=== PATIENT | female | born 1945 | race Caucasian/White ===

== ENCOUNTER 2022-07-01 15:56 | Inpatient (IN) | payer OTHER ==
[~2022-07-01] VITALS: Ht 152.4 cm; Wt 59.0 kg
[2022-07-01 16:07] VITALS: BP_SYST 134
[2022-07-01] MEDS ORDERED: NACL 0.9% 1,200 ML IV ONE (16:15)
[2022-07-01] MEDS ORDERED: cefTRIAXone 1 GM IVPB PREMIX 50 ML IV ONE (16:15)
[2022-07-01] MEDS ORDERED: methylPREDNISolone SOD SUCC/PF 62.5 MG/ML VIAL IVP ONE (16:15)
[2022-07-01] MEDS ORDERED: MAGNESIUM SULFATE 50 ML IV ONE (16:15)
[2022-07-01] MEDS ORDERED: AZITHROMYCIN 500 MG in NS 250 ML IV ONE (16:15)
[2022-07-01 16:40] LABS: BASOPHILS % (AUTO) 0.2 % (0.0-2.0); HEMATOCRIT 46.4 % (36-48); HEMOGLOBIN 15.5 g/dL (12.0-16.0); LYMPHOCYTES # (AUTO) 0.5 K/uL (1.0-5.5); LYMPHOCYTES % (AUTO) 2.3 % (20.5-51.5); MEAN CORPUSCULAR HEMOGLOBIN 32 pg (27-31); MEAN CORPUSCULAR HGB CONC 33 % (32-36); MEAN CORPUSCULAR VOLUME 95 fL (79.0-98.0); MONOCYTES # (AUTO) 0.4 K/uL (0.0-1.0); NEUTROPHILS # (AUTO) 20.1 K/uL (1.8-7.7); NEUTROPHILS % (AUTO) 95.5 % (40.0-70.0); PLATELET COUNT (AUTO) 230 K/uL (130-430); RED BLOOD CELL COUNT(AUTO) 4.87 MIL/uL (4.2-6.2); RED CELL DISTRIBUTION WIDTH 13.4 % (9.0-15.0)
--- NOTE | 2022-07-01 16:40 | NUR ---
Patient to ER bed 3 for evaluation. Side rails up. Report received from Radha.
--- NOTE | 2022-07-01 16:50 | NUR ---
Assumed care of pt who was brought from home by her daughter in law because her O2 sat was decreased at home from 84% to 88%. Pt became increasingly SOB and experienced air hunger that promted her to come to ED. Pt has a hx of HTN and COPD. She uses O2 at home avg 2 liters. Patient was talkative despite decreased saturation and A&Ox4. Will continue monitor and provide care as ordered.
--- NOTE | 2022-07-01 16:55 | NUR ---
ER Dr. Hart at bedside examining patient.
[2022-07-01 17:26] LABS: ANION GAP 10 (5-15); CALCIUM 9.5 mg/dL (8.4-11.0); CHLORIDE 103 mmol/L (98-107); CREATININE 1.01 mg/dL (0.55-1.30); GLUCOSE 131 mg/dL (70-99); SODIUM SERUM 139 mmol/L (136-145); UREA NITROGEN, BLOOD 23 mg/dL (8-21)
[2022-07-01 17:44] LABS: ALANINE AMINOTRANSFERASE 18 U/L (12-78); ALBUMIN 3.6 g/dL (3.4-4.8); ASPARTATE AMINOTRANSFERASE 18 U/L (10-37); TOTAL BILIRUBIN 0.6 mg/dL (0.0-1.0)
[2022-07-01] MEDS ORDERED: AZITHROMYCIN 500 MG/VIAL (ZITHROMAX) IV ONE (18:11)
--- NOTE | 2022-07-01 19:11 | NUR ---
Jhon Mendieta RN, report for the provision of continuing care.
[2022-07-01] MEDS ORDERED: AUG875 PO ×2 (19:44)
[2022-07-01] MEDS ORDERED: PRED20TA PO ×2 (19:44)
[2022-07-01] MEDS ORDERED: LEVO750T64 PO ×2 (19:44)
[2022-07-01] MEDS ORDERED: ALBMDI INH (19:44)
[2022-07-01] MEDS ORDERED: ALBU2.5V7 INH (19:44)
--- NOTE | 2022-07-01 20:39 | NUR ---
Admit bed requested Patient will be admitted to care of Dr.PALIWAL Dixon Admitted to TELE unit. Diagnosis COPD,PNA Inpatient (Yes or No) YES Observation (Yes or No) NO Orientation concerns or request close to nursing station (Yes or No) NO Covid Status PENDING On vent or bipap NO Isolation requirements NO Needs a sitter NO From Home (Yes or if No enter name of facility) YES Requires Dialysis (Yes or No) NO Med Rec Completed (Yes of No) PENDING
--- NOTE | 2022-07-01 22:30 | NUR ---
Pt transported to tele bed 110A, a/ox4, 84 NSR on solicitor patent, 91% on 4L NC. Bedside report given to No KEENE.
--- NOTE | 2022-07-01 22:45 | NUR ---
Patient received awake and without disress. No sob. O2 inplace, resr is unlabored. O2SAT 89 ON 3L NC. P'S T Significant other is at the bedside. Pt reoriented t he room. Pt wants to watch TV. offered control offered call light and instructed on the use of same.P2SAT 89 ON O2 4L NC.Side rails up times 3. Bed in lowest position.
[2022-07-01 22:58] VITALS: BP_SYST 118
--- NOTE | 2022-07-01 23:26 | NUR ---
RT IS AT RHE BEDSIDE. PT SUCTIONED. O2 AT 1L. O2 SAT 99. Addendum: 07/02/22 at 0037 by Ana Byrd RN RN Electric Installer error. Nursing note entered incorrectly. Please disregard..
[2022-07-02] VITALS (7 sets, daily range): BP systolic 110–130
--- NOTE | 2022-07-02 01:00 | NUR ---
As per DR Niraj Rocha hold mdi qne prednisone and contine all other medication. Pt states that she did not take the Erythromycin yesterday. temp 99.1
--- NOTE | 2022-07-02 01:30 | NUR ---
Xanax administered as ordered. HR 77, [id number]. BP 134/68, rr 24 tachypnic. bed is in lowest position, call light is in reach.
--- NOTE | 2022-07-02 03:21 | NUR ---
No adverse reaction noted from taking Xanax, as ordered. Patient asleep. Patient snoring and O2Sat O2 4L/min NC.
--- NOTE | 2022-07-02 05:37 | NUR ---
CONSULTATION PAGED/CALLED Reason for Consultation: PNA,COPD Person Who was Notified: GONZALO Consulting Physician: TIM Ordnance Equipment Worker Specialty: Ordering Physician: BENJAMÍN
--- NOTE | 2022-07-02 07:00 | NUR ---
Report received from JASSI Sarabia for continuity of care. Patient stable condition. Breathing labored but on O2
[2022-07-02] MEDS ORDERED: ROSU10TA2 PO (07:26)
[2022-07-02] MEDS ORDERED: METO-442 PO (07:26)
[2022-07-02] MEDS ORDERED: HYDR25TA4 PO (07:26)
[2022-07-02] MEDS ORDERED: SERT-436 PO (07:26)
[2022-07-02] MEDS ORDERED: PRED2.5T4 PO (07:26)
[2022-07-02] MEDS ORDERED: AMLO5TAB4 PO (07:26)
[2022-07-02] MEDS ORDERED: MONT-40 PO (07:26)
[2022-07-02] MEDS: ALPRAZolam 0.25 MG TABLET PO PRN (08:34)
[2022-07-02] MEDS ORDERED: BUDESONIDE 0.5 MG/2 ML AMPUL.NEB INH ONE (09:00)
[2022-07-02] MEDS ORDERED: METHYLPREDNISOLONE SOD SUCC 40 MG/ML VIAL IVP ONE (09:00)
[2022-07-02] MEDS: cefTRIAXone 1 GM IVPB PREMIX 50 ML IV SCH (09:49)
[2022-07-02] MEDS: IPRATROPIUM/ALBUTEROL SULFATE 3 ML AMPUL.NEB (DUONEB) INH SCH ×4 (10:25→23:18)
[2022-07-02] MEDS ORDERED: HYDROcodone/ACETAMIN 5-325 MG TAB (NORCO/ VICODIN) PO PRN (10:30)
[2022-07-02] MEDS ORDERED: ONDANSETRON HCL 4 MG/2 ML VIAL IVP PRN (10:30)
[2022-07-02] MEDS ORDERED: NALOXONE HCL 0.4 MG/ML AMP (NARCAN) IVP PRN ×2 (10:30)
[2022-07-02] MEDS ORDERED: HYDROcodone/ACETAMIN 10-325 MG TAB PO PRN (10:30)
[2022-07-02] MEDS ORDERED: ACETAMINOPHEN 325 MG TABLET PO PRN ×2 (10:30→10:45)
[2022-07-02] MEDS ORDERED: METO50TA7 PO (10:45)
[2022-07-02] MEDS ORDERED: HYDROCHLOROTHIAZIDE 25 MG TABLET (HCTZ) PO ONE (10:45)
[2022-07-02] MEDS ORDERED: amLODIPine BESYLATE 5 MG TABLET PO ONE (10:45)
[2022-07-02] MEDS ORDERED: SERTRALINE HCL 50 MG TABLET PO ONE (10:45)
[2022-07-02] MEDS ORDERED: METOPROLOL SUCCINATE 50 MG TAB.SR.24H (TOPROL XL) PO ONE (11:00)
[2022-07-02] MEDS: AZITHROMYCIN 500 MG in NS 250 ML IV SCH (11:13)
[2022-07-02] MEDS: HYDROCHLOROTHIAZIDE 25 MG TABLET (HCTZ) PO SCH (13:51)
[2022-07-02] MEDS ORDERED: NORMAL SALINE 5 ML DISP.SYRIN IVF SCH (14:00)
[2022-07-02] MEDS: NORMAL SALINE 5 ML DISP.SYRIN IVF SCH ×2 (14:00→22:04)
[2022-07-02] MEDS: MONTELUKAST 10 MG TABLET PO SCH (17:56)
--- NOTE | 2022-07-02 19:00 | NUR ---
RECEIVED PT AWAKE .ON OXY 2L/MIN VIA NC AND NOT IN DISTRESS.VITALS DONE ARE WITHIN NORMAL RANGE.IV CANNULA INTACT.PICC RIGHT UPPER ARM PATENT.MEDICATION INFUSING
[2022-07-02] MEDS: BUDESONIDE 0.5 MG/2 ML AMPUL.NEB INH SCH (19:41)
--- NOTE | 2022-07-02 20:02 | NUR ---
Report given to JASSI Alonso for continuity of care. Patient in stable condition. No distress noted.
[2022-07-02] MEDS ORDERED: ROSUVASTATIN CALCIUM 5 MG/TAB (CRESTOR) PO SCH (21:00)
[2022-07-02] MEDS: ATORVASTATIN 20 MG TABLET PO SCH (21:50)
[2022-07-02] MEDS: METHYLPREDNISOLONE SOD SUCC 40 MG/ML VIAL IVP SCH (21:50)
[2022-07-03] VITALS: BP_SYST 125
--- NOTE | 2022-07-03 | NUR ---
COUGHING AND NEEDING NEBULIZER FOR WHEEZING WHICH WAS EFFECTIVE.VITALS UPDATED
[2022-07-03] MEDS: ALPRAZolam 0.25 MG TABLET PO PRN (00:11)
[2022-07-03] MEDS: IPRATROPIUM/ALBUTEROL SULFATE 3 ML AMPUL.NEB (DUONEB) INH SCH ×6 (03:00→23:17)
--- NOTE | 2022-07-03 05:00 | NUR ---
CARES DONE BED BATHED AND LINEN CHANGED.PT ASLEEP
[2022-07-03] MEDS: NORMAL SALINE 5 ML DISP.SYRIN IVF SCH ×3 (05:45→21:21)
[2022-07-03 06:54] LABS: BASOPHILS % (AUTO) 0.2 % (0.0-2.0); HEMATOCRIT 39.6 % (36-48); HEMOGLOBIN 13.3 g/dL (12.0-16.0); LYMPHOCYTES # (AUTO) 0.5 K/uL (1.0-5.5); LYMPHOCYTES % (AUTO) 4.7 % (20.5-51.5); MEAN CORPUSCULAR HEMOGLOBIN 32 pg (27-31); MEAN CORPUSCULAR HGB CONC 34 % (32-36); MEAN CORPUSCULAR VOLUME 95 fL (79.0-98.0); MONOCYTES # (AUTO) 0.4 K/uL (0.0-1.0); MONOCYTES % (AUTO) 3.5 % (1.7-9.3); NEUTROPHILS # (AUTO) 10.3 K/uL (1.8-7.7); NEUTROPHILS % (AUTO) 91.6 % (40.0-70.0); PLATELET COUNT (AUTO) 211 K/uL (130-430); RED BLOOD CELL COUNT(AUTO) 4.17 MIL/uL (4.2-6.2); RED CELL DISTRIBUTION WIDTH 13.4 % (9.0-15.0); WHITE BLOOD COUNT (AUTO) 11.2 K/uL (4.8-10.8)
[2022-07-03] MEDS: BUDESONIDE 0.5 MG/2 ML AMPUL.NEB INH SCH ×2 (07:13→19:57)
[2022-07-03 07:25] LABS: ANION GAP 8 (5-15); C-REACTIVE PROTEIN QUANT 7.4 mg/dL (0-0.5); CALCIUM 8.2 mg/dL (8.4-11.0); CHLORIDE 107 mmol/L (98-107); GLUCOSE 158 mg/dL (70-99); SODIUM SERUM 141 mmol/L (136-145); UREA NITROGEN, BLOOD 29 mg/dL (8-21)
[2022-07-03 08:00] VITALS: BP_SYST 107
[2022-07-03] MEDS: METOPROLOL SUCCINATE 50 MG TAB.SR.24H (TOPROL XL) PO SCH (08:51)
[2022-07-03] MEDS: SERTRALINE HCL 50 MG TABLET PO SCH (08:51)
[2022-07-03] MEDS: amLODIPine BESYLATE 5 MG TABLET PO SCH (08:52)
[2022-07-03] MEDS: METHYLPREDNISOLONE SOD SUCC 40 MG/ML VIAL IVP SCH ×2 (08:52→21:20)
[2022-07-03] MEDS: cefTRIAXone 1 GM IVPB PREMIX 50 ML IV SCH (08:52)
[2022-07-03 12:00] VITALS: BP_SYST 111
[2022-07-03 12:10] LABS: ERYTHROCYTE SEDIMENTATION RATE 23 MM/HR (0-20)
[2022-07-03] MEDS: AZITHROMYCIN 500 MG in NS 250 ML IV SCH (12:39)
[2022-07-03 16:00] VITALS: BP_SYST 133
[2022-07-03] MEDS: MONTELUKAST 10 MG TABLET PO SCH (17:30)
--- NOTE | 2022-07-03 19:15 | NUR ---
OPENING NOTES RECEIVED PATIENT RESTING, NO SIGNS OF ACUTE RESPIRATORY DISTRESS NOTED. CALL LIGHT WITHIN REACH, PATIENT DEMONSTRATES PROPER USAGE OF CALL LIGHT. DISCUSSED PLAN OF CARE WITH PATIENT. BED ALARM ON, BED AT LOWEST POSITION, BED LOCKED. FALL, RESPIRATORY, ASPIRATION, AND SAFETY PRECAUTIONS IN PLACE. WILL CONTINUE TO MONITOR.
[2022-07-03 20:00] VITALS: BP_SYST 130
[2022-07-03] MEDS: ATORVASTATIN 20 MG TABLET PO SCH (21:21)
[2022-07-04 00:21] VITALS: BP_SYST 148
[2022-07-04] MEDS: ALPRAZolam 0.25 MG TABLET PO PRN (00:46)
[2022-07-04] MEDS: IPRATROPIUM/ALBUTEROL SULFATE 3 ML AMPUL.NEB (DUONEB) INH SCH ×4 (03:00→23:00)
[2022-07-04] MEDS: NORMAL SALINE 5 ML DISP.SYRIN IVF SCH ×3 (05:53→21:13)
[2022-07-04 07:12] LABS: BASOPHILS % (AUTO) 0.2 % (0.0-2.0); HEMATOCRIT 40.1 % (36-48); HEMOGLOBIN 13.8 g/dL (12.0-16.0); LYMPHOCYTES # (AUTO) 0.7 K/uL (1.0-5.5); LYMPHOCYTES % (AUTO) 7.2 % (20.5-51.5); MEAN CORPUSCULAR HEMOGLOBIN 33 pg (27-31); MEAN CORPUSCULAR HGB CONC 34 % (32-36); MEAN CORPUSCULAR VOLUME 95 fL (79.0-98.0); MONOCYTES # (AUTO) 0.3 K/uL (0.0-1.0); MONOCYTES % (AUTO) 2.5 % (1.7-9.3); NEUTROPHILS # (AUTO) 8.9 K/uL (1.8-7.7); NEUTROPHILS % (AUTO) 90.1 % (40.0-70.0); PLATELET COUNT (AUTO) 236 K/uL (130-430); RED BLOOD CELL COUNT(AUTO) 4.24 MIL/uL (4.2-6.2); RED CELL DISTRIBUTION WIDTH 13.5 % (9.0-15.0); WHITE BLOOD COUNT (AUTO) 9.9 K/uL (4.8-10.8)
--- NOTE | 2022-07-04 07:40 | NUR ---
CLOSING NOTES PATIENT RESTING, NO SIGNS OF ACUTE RESPIRATORY DISTRESS NOTED. CALL LIGHT WITHIN REACH, BED ALARM ON, BED AT LOWEST POSITION, BED LOCKED. FALL, RESPIRATORY, SAFETY AND ASPIRATION PRECAUTIONS PLACED THROUGHOUT SHIFT. ALL NEEDS MET THROUGHOUT SHIFT. WILL ENDORSE CARE TO ONCOMING SHIFT.
[2022-07-04 08:00] VITALS: BP_SYST 147
[2022-07-04 08:21] LABS: ALANINE AMINOTRANSFERASE 31 U/L (12-78); ALBUMIN 2.8 g/dL (3.4-4.8); ANION GAP 8 (5-15); ASPARTATE AMINOTRANSFERASE 25 U/L (10-37); C-REACTIVE PROTEIN QUANT 3.7 mg/dL (0-0.5); CALCIUM 8.3 mg/dL (8.4-11.0); CHLORIDE 108 mmol/L (98-107); CREATININE 0.85 mg/dL (0.55-1.30); GLUCOSE 138 mg/dL (70-99); POTASSIUM 4.4 mmol/L (3.5-5.1); SODIUM SERUM 142 mmol/L (136-145); TOTAL BILIRUBIN 0.2 mg/dL (0.0-1.0); UREA NITROGEN, BLOOD 25 mg/dL (8-21)
[2022-07-04 08:51] LABS: ERYTHROCYTE SEDIMENTATION RATE 14 MM/HR (0-20)
[2022-07-04] MEDS: METOPROLOL SUCCINATE 50 MG TAB.SR.24H (TOPROL XL) PO SCH (08:56)
[2022-07-04] MEDS: amLODIPine BESYLATE 5 MG TABLET PO SCH (08:57)
[2022-07-04] MEDS: HYDROCHLOROTHIAZIDE 25 MG TABLET (HCTZ) PO SCH (08:57)
[2022-07-04] MEDS: METHYLPREDNISOLONE SOD SUCC 40 MG/ML VIAL IVP SCH ×2 (08:57→21:13)
[2022-07-04] MEDS: SERTRALINE HCL 50 MG TABLET PO SCH (08:57)
[2022-07-04] MEDS: cefTRIAXone 1 GM IVPB PREMIX 50 ML IV SCH (08:58)
[2022-07-04 11:29] VITALS: BP_SYST 143
[2022-07-04] MEDS: AZITHROMYCIN 500 MG in NS 250 ML IV SCH (13:04)
[2022-07-04 16:32] VITALS: BP_SYST 145
[2022-07-04] MEDS: MONTELUKAST 10 MG TABLET PO SCH (18:01)
--- NOTE | 2022-07-04 18:45 | NUR ---
Miss Gaines has been assessed as indicated. She continues rto deny pain. She ambulates to the restroom without assistance. She states that she has 2 small soft stools today. She does become short of breath with exertion. She uses 3l O2 here as well as at home. She anticipates being DC to home tomorrow. She is presently resting quietly
--- NOTE | 2022-07-04 19:42 | NUR ---
Handoff has been given to Anais
[2022-07-04] MEDS: BUDESONIDE 0.5 MG/2 ML AMPUL.NEB INH SCH ×2 (20:08→23:25)
[2022-07-04 21:10] VITALS: BP_SYST 142
[2022-07-04] MEDS: ATORVASTATIN 20 MG TABLET PO SCH (21:13)
[2022-07-04] MEDS: FLUTICASONE PROPIONATE 50 mCg/SPRAY 16 GM NS SCH (21:13)
[2022-07-05] MEDS: IPRATROPIUM/ALBUTEROL SULFATE 3 ML AMPUL.NEB (DUONEB) INH SCH ×7 (00:26→23:18)
[2022-07-05] MEDS: ALPRAZolam 0.25 MG TABLET PO PRN ×3 (00:27→21:19)
[2022-07-05 01:17] VITALS: BP_SYST 155
[2022-07-05] MEDS: NORMAL SALINE 5 ML DISP.SYRIN IVF SCH ×3 (05:42→21:11)
[2022-07-05 07:00] VITALS: BP_SYST 128
[2022-07-05 07:00] LABS: BASOPHILS % (AUTO) 0.3 % (0.0-2.0); HEMATOCRIT 42.5 % (36-48); HEMOGLOBIN 14.4 g/dL (12.0-16.0); LYMPHOCYTES % (AUTO) 8.2 % (20.5-51.5); MEAN CORPUSCULAR HEMOGLOBIN 32 pg (27-31); MEAN CORPUSCULAR HGB CONC 34 % (32-36); MEAN CORPUSCULAR VOLUME 95 fL (79.0-98.0); MONOCYTES # (AUTO) 0.6 K/uL (0.0-1.0); MONOCYTES % (AUTO) 5.1 % (1.7-9.3); NEUTROPHILS # (AUTO) 10.3 K/uL (1.8-7.7); NEUTROPHILS % (AUTO) 86.4 % (40.0-70.0); PLATELET COUNT (AUTO) 261 K/uL (130-430); RED BLOOD CELL COUNT(AUTO) 4.49 MIL/uL (4.2-6.2); RED CELL DISTRIBUTION WIDTH 13.3 % (9.0-15.0); WHITE BLOOD COUNT (AUTO) 11.9 K/uL (4.8-10.8)
[2022-07-05 07:23] LABS: ANION GAP 8 (5-15); C-REACTIVE PROTEIN QUANT 1.4 mg/dL (0-0.5); CALCIUM 8.2 mg/dL (8.4-11.0); CHLORIDE 107 mmol/L (98-107); CREATININE 0.96 mg/dL (0.55-1.30); GLUCOSE 133 mg/dL (70-99); SODIUM SERUM 142 mmol/L (136-145); UREA NITROGEN, BLOOD 26 mg/dL (8-21)
[2022-07-05 08:18] LABS: ERYTHROCYTE SEDIMENTATION RATE 10 MM/HR (0-20)
[2022-07-05] MEDS: BUDESONIDE 0.5 MG/2 ML AMPUL.NEB INH SCH ×2 (08:35→19:57)
[2022-07-05] MEDS: FLUTICASONE PROPIONATE 50 mCg/SPRAY 16 GM NS SCH ×2 (11:09→21:10)
[2022-07-05] MEDS: HYDROCHLOROTHIAZIDE 25 MG TABLET (HCTZ) PO SCH (11:11)
[2022-07-05] MEDS: amLODIPine BESYLATE 5 MG TABLET PO SCH (11:13)
[2022-07-05] MEDS: METOPROLOL SUCCINATE 50 MG TAB.SR.24H (TOPROL XL) PO SCH (11:14)
[2022-07-05] MEDS: SERTRALINE HCL 50 MG TABLET PO SCH (11:14)
[2022-07-05] MEDS: cefTRIAXone 1 GM IVPB PREMIX 50 ML IV SCH (11:14)
[2022-07-05] MEDS: METHYLPREDNISOLONE SOD SUCC 40 MG/ML VIAL IVP SCH ×2 (11:16→21:10)
[2022-07-05 12:55] VITALS: BP_SYST 146
[2022-07-05] MEDS: AZITHROMYCIN 500 MG in NS 250 ML IV SCH (13:54)
[2022-07-05 16:41] VITALS: BP_SYST 149
[2022-07-05] MEDS: MONTELUKAST 10 MG TABLET PO SCH (18:49)
[2022-07-05 20:35] VITALS: BP_SYST 136
[2022-07-05] MEDS: ATORVASTATIN 20 MG TABLET PO SCH (21:10)
[2022-07-06 01:02] VITALS: BP_SYST 143
[2022-07-06] MEDS: IPRATROPIUM/ALBUTEROL SULFATE 3 ML AMPUL.NEB (DUONEB) INH SCH ×3 (03:00→11:35)
[2022-07-06] MEDS: NORMAL SALINE 5 ML DISP.SYRIN IVF SCH (05:57)
--- NOTE | 2022-07-06 06:35 | NUR ---
Closing notes Pt asleep, no s/s distress noted. O2 on via NC satting at 90-92%. Call light within reach. Bed low, locked, siderails up x2. To endorse to AM nurse.
[2022-07-06 06:40] LABS: BASOPHILS % (AUTO) 0.2 % (0.0-2.0); HEMOGLOBIN 14.1 g/dL (12.0-16.0); LYMPHOCYTES # (AUTO) 0.9 K/uL (1.0-5.5); LYMPHOCYTES % (AUTO) 7.9 % (20.5-51.5); MEAN CORPUSCULAR HEMOGLOBIN 32 pg (27-31); MEAN CORPUSCULAR HGB CONC 34 % (32-36); MEAN CORPUSCULAR VOLUME 95 fL (79.0-98.0); MONOCYTES # (AUTO) 0.4 K/uL (0.0-1.0); MONOCYTES % (AUTO) 3.4 % (1.7-9.3); NEUTROPHILS % (AUTO) 88.5 % (40.0-70.0); PLATELET COUNT (AUTO) 266 K/uL (130-430); RED BLOOD CELL COUNT(AUTO) 4.44 MIL/uL (4.2-6.2); RED CELL DISTRIBUTION WIDTH 13.1 % (9.0-15.0); WHITE BLOOD COUNT (AUTO) 11.3 K/uL (4.8-10.8)
[2022-07-06 07:04] LABS: ANION GAP 6 (5-15); C-REACTIVE PROTEIN QUANT 0.7 mg/dL (0-0.5); CALCIUM 8.8 mg/dL (8.4-11.0); CHLORIDE 105 mmol/L (98-107); CREATININE 1.02 mg/dL (0.55-1.30); GLUCOSE 133 mg/dL (70-99); POTASSIUM 5.1 mmol/L (3.5-5.1); SODIUM SERUM 142 mmol/L (136-145); UREA NITROGEN, BLOOD 26 mg/dL (8-21)
[2022-07-06] MEDS ORDERED: AZIT500T10 PO (07:52)
[2022-07-06] MEDS ORDERED: ALPR0.25 PO (07:52)
[2022-07-06] MEDS ORDERED: PRED10TA PO (07:52)
[2022-07-06] MEDS ORDERED: PRED20TA PO (07:52)
[2022-07-06] MEDS: BUDESONIDE 0.5 MG/2 ML AMPUL.NEB INH SCH (07:56)
[2022-07-06 08:00] VITALS: BP_SYST 119
[2022-07-06 08:08] LABS: ERYTHROCYTE SEDIMENTATION RATE 5 MM/HR (0-20)
[2022-07-06] MEDS: cefTRIAXone 1 GM IVPB PREMIX 50 ML IV SCH (09:56)
[2022-07-06] MEDS: METHYLPREDNISOLONE SOD SUCC 40 MG/ML VIAL IVP SCH (09:57)
[2022-07-06] MEDS: FLUTICASONE PROPIONATE 50 mCg/SPRAY 16 GM NS SCH (09:58)
[2022-07-06] MEDS: HYDROCHLOROTHIAZIDE 25 MG TABLET (HCTZ) PO SCH (09:59)
[2022-07-06] MEDS: amLODIPine BESYLATE 5 MG TABLET PO SCH (09:59)
[2022-07-06] MEDS: METOPROLOL SUCCINATE 50 MG TAB.SR.24H (TOPROL XL) PO SCH (10:00)
[2022-07-06] MEDS: SERTRALINE HCL 50 MG TABLET PO SCH (10:03)
[2022-07-06 12:31] VITALS: BP_SYST 128
[2022-07-06] MEDS: AZITHROMYCIN 500 MG in NS 250 ML IV SCH (13:15)
[2022-07-06 16:08] VITALS: BP_SYST 126
--- NOTE | 2022-07-06 16:36 | NUR ---
AAOX4 NAD NOTED. DISCHARGE INSTRUCTIONS PROVIDED. PT VERBALIZED UNDERSTANDING OF TEACHINGS. PT DENIED QUESTIONS. PORTABLE HOME O2 TANK AT BEDSIDE. PT AWAITING FAMILY FOR TRANSPORTATION.
[2022-07-06 16:49] VITALS: BP_SYST 118
--- NOTE | 2022-07-06 16:56 | NUR ---
HOME O2 TANK WORKING PROPERLY ON 73 PERCENT. PT ESCORTED BY STAFF TO PRIVATE VEHICLE VIA WHEELCHAIR WITHOUT INCIDENT.
== END 2022-07-06 16:55 | disposition home health service (06) | DRG 871 ==
LOC: SED 15:56 → SMU 20:34 → STU 22:13 → SMU 07-03 14:38
PROVIDERS: ADMIT Preventive Medicine Preventive Medicine/Occupational Environmental Medicine; ATTEND Preventive Medicine Preventive Medicine/Occupational Environmental Medicine
DX: A41.9 Sepsis, unspecified organism (principal); J18.9 Pneumonia, unspecified organism; J96.21 Acute and chronic respiratory failure with hypoxia; J44.1 Chronic obstructive pulmonary disease with (acute) exacerbation; J44.0 Chronic obstructive pulmonary disease with (acute) lower respiratory infection; E78.5 Hyperlipidemia, unspecified; R73.9 Hyperglycemia, unspecified; I10 Essential (primary) hypertension; J20.9 Acute bronchitis, unspecified; E88.09 Other disorders of plasma-protein metabolism, not elsewhere classified; R53.81 Other malaise; E83.52 Hypercalcemia; Z20.822 Contact with and (suspected) exposure to COVID-19
CPT/HCPCS: 36415; 71045; 80048; 80053; 83605; 85025; 85651-TC; 86140; 87040; 94640; 94760; 96365; 96367; 96368; 96372; 96375; 99285; G0378; J0456; J0696; J1030; J2930; J3475; J7050; J7626

== ENCOUNTER 2022-07-18 06:08 | Inpatient (IN) | payer OTHER ==
[~2022-07-18] VITALS: Ht 152.4 cm; Wt 57.6 kg
[~2022-07-18 06:08] MED LIST: ALBMDI INH; ALBU2.5V7 INH; ALPR0.25 PO; AMLO5TAB4 PO; AZIT500T10 PO; HYDR25TA4 PO; METO50TA7 PO; MONT-40 PO; PRED10TA PO; PRED20TA PO; ROSU10TA2 PO; SERT-436 PO
[2022-07-18 07:25] VITALS: BP_SYST 107
--- NOTE | 2022-07-18 07:30 | NUR ---
PT BIB FAMILY WITH C/C OF DIARRHEA THAT STARTED 3 DAYS AGO. PT UNABLE TO TOLERATE PO WELL AND HAS NOT TAKEN HER MEDICATIONS IN 2 DAYS. PT WITH RECENT ADMISSION TO [facility]. WAS DISCHARGED ON 07/12/22 FOR PNEUMONIA. O2 DEPENDENT ON 3L NC WITH HX OF COPD. PT TACHYPENIC WITH FEVER. O2 SAT 85%. COVID AND FLU SWAB TAKEN, SENT TO LAB. DR. HUITRON MADE AWARE.
--- NOTE | 2022-07-18 08:44 | NUR ---
PT PLACED IN BED 4, INFORMED DR. HUITRON OF STATUS. #20G IV ACCESS INSERTED TO LEFT WRIST. BLOOD TAKEN AND PLACED AT BS, INFORMED PRIMARY RN NELIDA. PLACED ON TELE WITH ST NOTED 102-104. PLACED ON 3L O2 NC WITH O2 SAT 90-91%.
--- NOTE | 2022-07-18 09:05 | NUR ---
DR HUITRON AT BEDSIDE
[2022-07-18] MEDS ORDERED: ONDANSETRON HCL 4 MG/2 ML VIAL IVP ONE (09:15)
[2022-07-18] MEDS ORDERED: IPRATROPIUM/ALBUTEROL SULFATE 3 ML AMPUL.NEB (DUONEB) INH ONE (09:15)
[2022-07-18] MEDS ORDERED: NACL 0.9% 1,000 ML IV ONE (09:15)
[2022-07-18] MEDS ORDERED: MAG HYDROX/AL HYDROX/SIMETH 30 ML, DICYCLOMINE HCL 20 MG, LIDOCAINE VISCOUS 2% 15ML (PO... PO ONE ×3 (09:15)
[2022-07-18 09:36] LABS: BASOPHILS # (AUTO) 0.1 K/uL (0.0-0.2); BASOPHILS % (AUTO) 0.3 % (0.0-2.0); EOSINOPHILS % (AUTO) 0.1 % (0.0-4.0); HEMATOCRIT 41.9 % (36-48); LYMPHOCYTES # (AUTO) 1.1 K/uL (1.0-5.5); LYMPHOCYTES % (AUTO) 3.4 % (20.5-51.5); MEAN CORPUSCULAR HEMOGLOBIN 32 pg (27-31); MEAN CORPUSCULAR HGB CONC 33 % (32-36); MEAN CORPUSCULAR VOLUME 95 fL (79.0-98.0); MONOCYTES # (AUTO) 1.1 K/uL (0.0-1.0); MONOCYTES % (AUTO) 3.4 % (1.7-9.3); NEUTROPHILS # (AUTO) 29.3 K/uL (1.8-7.7); NEUTROPHILS % (AUTO) 92.8 % (40.0-70.0); PLATELET COUNT (AUTO) 158 K/uL (130-430); RED BLOOD CELL COUNT(AUTO) 4.43 MIL/uL (4.2-6.2); RED CELL DISTRIBUTION WIDTH 13.8 % (9.0-15.0)
[2022-07-18 09:38] LABS: WHITE BLOOD COUNT (AUTO) 31.6 K/uL (4.8-10.8)
[2022-07-18 09:50] LABS: ANION GAP 10 (5-15); CALCIUM 8.6 mg/dL (8.4-11.0); CHLORIDE 97 mmol/L (98-107); CREATININE 1.89 mg/dL (0.55-1.30); GLUCOSE 65 mg/dL (70-99); SODIUM SERUM 133 mmol/L (136-145); UREA NITROGEN, BLOOD 42 mg/dL (8-21)
[2022-07-18 09:58] LABS: ALANINE AMINOTRANSFERASE 24 U/L (12-78); ALBUMIN 2.8 g/dL (3.4-4.8); ASPARTATE AMINOTRANSFERASE 17 U/L (10-37); LIPASE 31 U/L (73-393); TOTAL BILIRUBIN 0.7 mg/dL (0.0-1.0)
[2022-07-18] MEDS ORDERED: MAG-AL HYDROX/SIMETH 30 ML UDC ONE (10:37)
[2022-07-18] MEDS ORDERED: DICYCLOMINE HCL 10 MG/5 ML SOLUTION ONE (10:41)
[2022-07-18] MEDS ORDERED: LIDOCAINE VISCOUS 2%, 15 ML UDC ONE (11:10)
--- NOTE | 2022-07-18 11:24 | NUR ---
PT O2 SATURATION FELL TO 79%, CONULA AND O2 WALL CONNECTOR LEAKING, CHANGED EQUIPMENT PT AT 90% 5L CANULA
[2022-07-18] MEDS ORDERED: ATROPINE SULFATE 0.4 MG/ML VIAL IVP ONE (12:00)
[2022-07-18] MEDS ORDERED: MORPHINE 4 MG INJ. 4 MG/ML VIAL IVP ONE (12:00)
[2022-07-18] MEDS ORDERED: PIPERACILLIN/TAZO 3.375 GM in NS 50 ML IV ONE (12:30)
[2022-07-18] MEDS ORDERED: PIPERACILLIN/TAZOBACTAM 3.375 GM/VIAL (ZOSYN) IV ONE (14:26)
--- NOTE | 2022-07-18 16:44 | NUR ---
PT WAS ON BED SIDE COMODE AND THE SEAT "PINCHED" HER INNER THIGH WHILE SHE SAT ON IT CAUSING APX A 3 CM LACERATION ON HER RIGHT THIGH. DR DUKE WILL ASSESS PT
[2022-07-18] MEDS: MONTELUKAST 10 MG TABLET PO SCH ×2 (17:45→18:00)
[2022-07-18] MEDS: METOPROLOL SUCCINATE 50 MG TAB.SR.24H (TOPROL XL) PO SCH (17:45)
[2022-07-18] MEDS: VANCOMYCIN HCL ORAL SOLUTION 125 MG/5 ML, 150 ML PO SCH ×2 (17:45→21:00)
[2022-07-18] MEDS ORDERED: ALBUTEROL SULFATE 0.083% 2.5 MG/3 ML VIAL.NEB INH PRN (17:45)
[2022-07-18] MEDS ORDERED: ALBUTEROL MDI INHALATION 8 GM INH INH PRN (17:45)
[2022-07-18] MEDS: SERTRALINE HCL 50 MG TABLET PO SCH (17:45)
[2022-07-18] MEDS ORDERED: LEVOFLOXACIN 250 MG/D5W 50 ML IV ONE (17:45)
[2022-07-18] MEDS: predniSONE 20 MG TABLET PO SCH (17:45)
--- NOTE | 2022-07-18 18:23 | NUR ---
Gave pt. Regular Diet tray for dinner.
[2022-07-18 19:05] LABS: BILIRUBIN,URINE NEGATIVE (NEGATIVE); BLOOD, URINE 1+ (NEGATIVE); COLOR,URINE YELLOW (YELLOW); GLUCOSE,URINE NEGATIVE (NEGATIVE); KETONES,URINE NEGATIVE (NEGATIVE); LEUKOCYTE ESTERASE ,URINE 2+ (NEGATIVE); NITRITE, URINE NEGATIVE (NEGATIVE); PH,URINE 5.5 (5.0-8.0); PROTEIN URINE NEGATIVE (NEGATIVE); UROBILINOGEN,URINE 0.2 (0.2-1.0)
[2022-07-18 19:08] LABS: CLARITY/URINE SLIGHTLY HAZY (CLEAR)
[2022-07-18 19:18] LABS: BACTERIA,URINE FEW /HPF (None Seen); MUCUS,URINE None Seen /LPF (None Seen); RBC,URINE NONE SEEN /HPF (0-3)
[2022-07-18 20:36] VITALS: BP_SYST 123
[2022-07-18] MEDS ORDERED: ROSUVASTATIN CALCIUM 5 MG/TAB (CRESTOR) PO SCH (21:00)
[2022-07-18 23:25] VITALS: BP_SYST 123
--- NOTE | 2022-07-19 03:13 | NUR ---
CONSULTATION PAGED/CALLED Reason for Consultation: [DIARRHEA] Person Who was Notified: [EXCHANGE] Consulting Physician: [DR. ORR] Sanitation Associate Specialty: [INFECTIOUS DISEASE] Ordering Physician: []
--- NOTE | 2022-07-19 03:54 | NUR ---
CONSULTATION PAGED/CALLED Reason for Consultation: [COPD] Person Who was Notified: [PATEN] Consulting Physician: [ALEKSANDR SALCIDO] Elevator Constructor Supervisor Specialty: [PULMONARY] Ordering Physician: []
[2022-07-19 04:15] VITALS: BP_SYST 123
--- NOTE | 2022-07-19 07:22 | NUR ---
RE-ADMISSION OF A 77 YEAR OLD FEMALE WITH GASTRITIS FROM JULY 06 DISCHARGE. MUKUL MUNOZ RN
[2022-07-19 08:00] VITALS: BP_SYST 110
--- NOTE | 2022-07-19 08:00 | NUR ---
OPENING NOTES: PATIENT EATING BREAKFAST. HEAD OF THE BED ELEVATED. BREATHING EVEN AND NON LABORED TO O2 AT 2L/NC. FALL AND SAFETY MEASURES REINFORCED. CALL LIGHT WITHIN REACH.
[2022-07-19 08:02] LABS: BASOPHILS % (AUTO) 0.2 % (0.0-2.0); EOSINOPHILS # (AUTO) 0.1 K/uL (0.0-0.4); EOSINOPHILS % (AUTO) 0.9 % (0.0-4.0); HEMATOCRIT 36.7 % (36-48); HEMOGLOBIN 12.2 g/dL (12.0-16.0); LYMPHOCYTES % (AUTO) 6.6 % (20.5-51.5); MEAN CORPUSCULAR HEMOGLOBIN 32 pg (27-31); MEAN CORPUSCULAR HGB CONC 33 % (32-36); MEAN CORPUSCULAR VOLUME 94 fL (79.0-98.0); MONOCYTES # (AUTO) 0.7 K/uL (0.0-1.0); MONOCYTES % (AUTO) 4.7 % (1.7-9.3); NEUTROPHILS # (AUTO) 13.1 K/uL (1.8-7.7); NEUTROPHILS % (AUTO) 87.6 % (40.0-70.0); PLATELET COUNT (AUTO) 128 K/uL (130-430); RED BLOOD CELL COUNT(AUTO) 3.89 MIL/uL (4.2-6.2); RED CELL DISTRIBUTION WIDTH 13.8 % (9.0-15.0); WHITE BLOOD COUNT (AUTO) 14.9 K/uL (4.8-10.8)
[2022-07-19 08:29] LABS: ANION GAP 7 (5-15); CALCIUM 8.5 mg/dL (8.4-11.0); CHLORIDE 103 mmol/L (98-107); CREATININE 1.06 mg/dL (0.55-1.30); GLUCOSE 90 mg/dL (70-99); POTASSIUM 3.4 mmol/L (3.5-5.1); SODIUM SERUM 136 mmol/L (136-145); UREA NITROGEN, BLOOD 26 mg/dL (8-21)
[2022-07-19] MEDS ORDERED: metroNIDAZOLE 500 mg/NS 100 ML IV SCH (08:30)
[2022-07-19] MEDS: SERTRALINE HCL 50 MG TABLET PO SCH (09:23)
[2022-07-19] MEDS: ATORVASTATIN 20 MG TABLET PO SCH (09:23)
[2022-07-19] MEDS: predniSONE 20 MG TABLET PO SCH (09:23)
[2022-07-19] MEDS: METOPROLOL SUCCINATE 50 MG TAB.SR.24H (TOPROL XL) PO SCH (09:23)
[2022-07-19] MEDS: VANCOMYCIN HCL ORAL SOLUTION 125 MG/5 ML, 150 ML PO SCH ×4 (09:23→21:59)
[2022-07-19 17:00] VITALS: BP_SYST 114
[2022-07-19] MEDS: MONTELUKAST 10 MG TABLET PO SCH (18:00)
--- NOTE | 2022-07-19 19:10 | NUR ---
Closing Notes: Patient resting in bed. No s/s of acute distress noted. Needs met throughout shift. Endorsed to retail shift leader RN.
--- NOTE | 2022-07-19 19:30 | NUR ---
Opening note Received report from day shift. Pt is awake sitting up in bed watching TV. No s/s of respiratory distress. Breathing even and unlabored on 2L NC. IV site intact and patent saline lock. Fall and safety precautions in place with bed in lowest position, bed alarm on, and call light within reach
[2022-07-19 20:00] VITALS: BP_SYST 118
[2022-07-19] MEDS: ALPRAZolam 0.25 MG TABLET PO PRN (21:59)
[2022-07-20] VITALS: BP_SYST 96
--- NOTE | 2022-07-20 00:15 | NUR ---
Rounds Pt resting in bed, eyes closed. No s/s of acute distress. VSS
--- NOTE | 2022-07-20 07:01 | NUR ---
Closing note Pt lying in bed, eyes closed. No s/s of respiratory distress. Breathing even and unlabored on 2L NC. IV site intact and patent saline lock. All needs met throughout shift. Fall and safety precautions in place with bed in lowest position, bed alarm on, and call light within reach
[2022-07-20 08:00] VITALS: BP_SYST 130
--- NOTE | 2022-07-20 08:00 | NUR ---
OPENING NOTES: RECEIVED PATIENT FROM INDUSTRIAL ECONOMIST RN. PATIENT EATING BREAKFAST. HEAD OF THE BED ELEVATED. BREATHING EVEN AND NON LABORED TO O2 AT 2L/NC. FALL AND SAFETY MEASURES REINFORCED. CALL LIGHT WITHIN REACH.
[2022-07-20] MEDS: ATORVASTATIN 20 MG TABLET PO SCH (08:31)
[2022-07-20] MEDS: predniSONE 20 MG TABLET PO SCH (08:31)
[2022-07-20] MEDS: SERTRALINE HCL 50 MG TABLET PO SCH (08:31)
[2022-07-20] MEDS: METOPROLOL SUCCINATE 50 MG TAB.SR.24H (TOPROL XL) PO SCH (08:31)
[2022-07-20] MEDS: VANCOMYCIN HCL ORAL SOLUTION 125 MG/5 ML, 150 ML PO SCH ×4 (08:32→21:10)
[2022-07-20 12:00] VITALS: BP_SYST 124
[2022-07-20 17:00] VITALS: BP_SYST 118
[2022-07-20] MEDS: MONTELUKAST 10 MG TABLET PO SCH (18:40)
--- NOTE | 2022-07-20 19:25 | NUR ---
Closing Notes: Patient resting in bed. No s/s of acute distress noted. Needs met throughout shift. Endorsed to retail shift manager RN.
[2022-07-20 20:00] VITALS: BP_SYST 148
[2022-07-20] MEDS: ALPRAZolam 0.25 MG TABLET PO PRN (21:10)
[2022-07-21] VITALS: BP_SYST 140
--- NOTE | 2022-07-21 02:00 | NUR ---
pt.re-assigned.i have assumed the care of the pt.for the remainder of the shift.pt.presents quiescent affect;calm resting. pt.utilizing the bsc;r/o c-diff. toxin.pt.apprised that snacks/beverages are available w/in the shift.pt.requested juice;oj/crackers;saltines;provided.no c/o pain,nausea.no diarrhea presented.to continue collection stool:c-diff.general status stable.respiratory status:o2 therapy via nasal cannulae.rate:2l/min.o2-sat%=96%.call light/telephone w/in access of the pt.bsc w/in access of the pt.
--- NOTE | 2022-07-21 04:00 | NUR ---
pt.assessed.pt.presents quiescent affect;calm;somnolent.per flacc pain mgx pt.absentr facial grimaces/body posturing. bsc inspected;clean w/in access of the pt.pt.capable to reposition self.call light/telephone w/in access of the pt.
--- NOTE | 2022-07-21 06:00 | NUR ---
pt.assessed.no c/o pain,nausea.no requests posited@this hour.i have attended to the bsc;cleaned/placed w/in access of the pt.call light/telephone placed w/in access of the pt.
[2022-07-21 08:00] VITALS: BP_SYST 121
[2022-07-21] MEDS: SERTRALINE HCL 50 MG TABLET PO SCH (09:32)
[2022-07-21] MEDS: VANCOMYCIN HCL ORAL SOLUTION 125 MG/5 ML, 150 ML PO SCH ×4 (09:32→21:34)
[2022-07-21] MEDS: predniSONE 20 MG TABLET PO SCH (09:32)
[2022-07-21] MEDS: ATORVASTATIN 20 MG TABLET PO SCH (09:32)
[2022-07-21] MEDS: METOPROLOL SUCCINATE 50 MG TAB.SR.24H (TOPROL XL) PO SCH (09:33)
[2022-07-21 12:12] VITALS: BP_SYST 121
[2022-07-21 13:49] LABS: BASOPHILS # (AUTO) 0.1 K/uL (0.0-0.2); BASOPHILS % (AUTO) 0.8 % (0.0-2.0); EOSINOPHILS # (AUTO) 0.1 K/uL (0.0-0.4); EOSINOPHILS % (AUTO) 1.3 % (0.0-4.0); HEMOGLOBIN 14.5 g/dL (12.0-16.0); LYMPHOCYTES # (AUTO) 0.3 K/uL (1.0-5.5); LYMPHOCYTES % (AUTO) 3.4 % (20.5-51.5); MEAN CORPUSCULAR HEMOGLOBIN 32 pg (27-31); MEAN CORPUSCULAR HGB CONC 34 % (32-36); MEAN CORPUSCULAR VOLUME 95 fL (79.0-98.0); MONOCYTES # (AUTO) 0.1 K/uL (0.0-1.0); MONOCYTES % (AUTO) 1.3 % (1.7-9.3); NEUTROPHILS # (AUTO) 8.8 K/uL (1.8-7.7); NEUTROPHILS % (AUTO) 93.2 % (40.0-70.0); PLATELET COUNT (AUTO) 162 K/uL (130-430); RED BLOOD CELL COUNT(AUTO) 4.55 MIL/uL (4.2-6.2); RED CELL DISTRIBUTION WIDTH 13.8 % (9.0-15.0); WHITE BLOOD COUNT (AUTO) 9.5 K/uL (4.8-10.8)
[2022-07-21] MEDS ORDERED: PEG 400/HYPROMELLOSE/GLYCERIN 15 ML DROPS OP PRN (16:30)
[2022-07-21] MEDS ORDERED: FLUTICASONE PROPIONATE 50 mCg/SPRAY 16 GM NS PRN (16:30)
[2022-07-21] MEDS ORDERED: IPRA3AMP9 INH (17:30)
[2022-07-21] MEDS ORDERED: VANC25SO PO (17:30)
[2022-07-21] MEDS: MONTELUKAST 10 MG TABLET PO SCH (17:31)
--- NOTE | 2022-07-21 19:33 | NUR ---
0800: NO C/O ANY PAIN OR DISCOMFORT NOTED. WILL CONTINUE TO MONITOR PATIENT. 1230: TOLERATED PO WELL W/O ANY DISCOMFORT, ALSO NO SIDE EFFECT FROM ANTIBIOTIC NOTED. 1900: NEW MEDICATION: DUONEB. Q 4HR ROUTINE, ARTIFICIAL TEAR QID PRN AND NASAL STEROID. NEW ORDER PER DR. Zack RAY TO [place] PATIENT HOME TONIGHT. INFORMED PATIENT OF THE NEW ORDER. FAMILY TRANSPORTATION TO COORDINATING PRODUCER IS HER 81 YEARS OLD SPOUSE. ENDORSED TO PM SHIFT NURSE TO F/U WITH DR. RAY TO CHANGE TN'D ORDER TO TOMORROW IN AM.
[2022-07-21] MEDS: IPRATROPIUM/ALBUTEROL SULFATE 3 ML AMPUL.NEB (DUONEB) INH SCH ×2 (19:43→23:00)
--- NOTE | 2022-07-21 19:52 | NUR ---
SPOKE WITH MD RAY REGARDING THE DISCHARGE AND MADE AWARE THAT FAMILY IS UNABLE TP CHANGE MANAGEMENT ANALYST PT FOR TONIGHT. HELD THE DISCHARGE FOR TONIGHT.
[2022-07-21 20:00] VITALS: BP_SYST 139
[2022-07-21] MEDS: ALPRAZolam 0.25 MG TABLET PO PRN (21:48)
[2022-07-22] VITALS: BP_SYST 112
[2022-07-22] MEDS: IPRATROPIUM/ALBUTEROL SULFATE 3 ML AMPUL.NEB (DUONEB) INH SCH ×2 (02:59→08:30)
--- NOTE | 2022-07-22 07:30 | NUR ---
OPENING NOTES: PATIENT IS SITTING IN THE BED. AAOX4 ABLE TO MAKE NEEDS KNOWN. NO DISTRESS OR PAIN NOTED AT THIS TIME. EXPLAINED POC AND PATIENT VERBALIZED UNDERSTANDING. PATIENT IS AWARE OF DC HOME TODAY. PATIENT'S WILL BE HERE AT 9AM TO PICK HER UP. BED IN LOW AND LOCK POSITION. BEDSIDE COMMODE AND CALL LIGHT WITHIN REACH. STABLE CONDITION.
[2022-07-22] MEDS: SERTRALINE HCL 50 MG TABLET PO SCH (08:24)
[2022-07-22] MEDS: predniSONE 20 MG TABLET PO SCH (08:24)
[2022-07-22] MEDS: ATORVASTATIN 20 MG TABLET PO SCH (08:24)
[2022-07-22] MEDS: METOPROLOL SUCCINATE 50 MG TAB.SR.24H (TOPROL XL) PO SCH (08:25)
[2022-07-22 08:26] VITALS: BP_SYST 151
[2022-07-22 08:56] VITALS: BP_SYST 154
[2022-07-22] MEDS: VANCOMYCIN HCL ORAL SOLUTION 125 MG/5 ML, 150 ML PO SCH (09:11)
--- NOTE | 2022-07-22 09:20 | NUR ---
DC HOME: DC INSTRUCTIONS GIVEN AND EXPLAINED AND PATIENT VERBALIZED UNDERSTANDING. IV REMOVED FROM THE LEFT HAND. IV CATH INTACT WHEN REMOVED. COVER SITE WITH GAUZE AND SECURE WITH TAPE. DENIES PAIN OR DISTRESS AT THIS TIME. WHEELED OUT PATIENT ACCOMPANIED BY HER PRIMARY NURSE AND . LEFT THE FACILITY IN A STABLE CONDITION. ALL PERSONAL BELONGINGS GIVEN TO PATIENT AND DENIES MISSING ITEMS. PATIENT WENT HOME WITH HER OWN PORTABLE 02 MACHINE.
[2022-07-22] MEDS ORDERED: [UNRECOGNIZED DRUG - CODE] PO (14:16)
[2022-07-22] MEDS ORDERED: IPRA3AMP9 INH (14:17)
== END 2022-07-22 10:15 | disposition home or self-care (01) | DRG 871 ==
LOC: SED 06:08 → SMU 17:34 → SED 20:07 → SMU 20:07 → SED 07-19 12:50 → SMU 07-19 17:05
PROVIDERS: ADMIT Specialist; ATTEND Specialist
DX: A41.9 Sepsis, unspecified organism (principal); J18.9 Pneumonia, unspecified organism; A04.72 Enterocolitis due to Clostridium difficile, not specified as recurrent; N39.0 Urinary tract infection, site not specified; J44.1 Chronic obstructive pulmonary disease with (acute) exacerbation; J44.0 Chronic obstructive pulmonary disease with (acute) lower respiratory infection; Z20.822 Contact with and (suspected) exposure to COVID-19; I11.0 Hypertensive heart disease with heart failure; I50.9 Heart failure, unspecified; E78.00 Pure hypercholesterolemia, unspecified; E78.5 Hyperlipidemia, unspecified; E66.01 Morbid (severe) obesity due to excess calories; Z87.01 Personal history of pneumonia (recurrent); Z87.891 Personal history of nicotine dependence; Z79.899 Other long term (current) drug therapy; Z68.24 Body mass index [BMI] 24.0-24.9, adult
CPT/HCPCS: 36415; 71045; 71270-TC; 76376; 80048; 80053; 81000; 82272; 83605; 83690; 85025; 85651-TC; 87040; 87045-TC; 87046; 87086; 89055; 94640; 94760; 96361; 96365; 96375; 99285; J0696; J1956; J2001; J2405; J2543; J3490; J7060; J7512; J7613

== ENCOUNTER 2022-07-27 21:15 | Emergency (ER) | payer OTHER ==
[~2022-07-27] VITALS: Ht 152.4 cm; Wt 57.6 kg
[~2022-07-27 21:15] MED LIST changes: +IPRA3AMP9 INH; +VANC25SO PO; +[UNRECOGNIZED DRUG - CODE] PO
[2022-07-27 21:27] VITALS: BP_SYST 152
--- NOTE | 2022-07-27 21:30 | NUR ---
PATIENT BROUGHT TO BED 3, PLACED ON MONITOR, REPORT GIVEN TO RN. PER PATIENT AND DAUGHTER, PATIENT HAS BEEN UNABLE TO URINATE X 1 DAY WITH SOB INCREASINGLY WORSE THROUGHOUT THE DAY. PATIENT IS NORMALLY ON 3L NC AT HOME FOR COPD, WITH NORMAL SATURATION 88-90 BUT IS SATTING 84% AT THIS TIME WITH OBVIOUS DYSPNEA AT REST. PATIENT IS CURRENTLY ON VANCO AT HOME AFTER BEING ADMITTED FOR PNA ONE WEEK AGO.
--- NOTE | 2022-07-27 21:35 | NUR ---
ER at bedside examining patient.
--- NOTE | 2022-07-27 21:39 | NUR ---
RT AT BEDSIDE FOR BREATHING TX
[2022-07-27] MEDS ORDERED: ALBUTEROL SULFATE 0.083% 2.5 MG/3 ML VIAL.NEB INH ONE (21:45)
[2022-07-27] MEDS ORDERED: IPRATROPIUM BROM 0.5 MG/2.5 ML VIAL.NEB (ATROVENT) INH ONE (21:45)
[2022-07-27] MEDS ORDERED: ASPIRIN 81 MG TAB.CHEW PO ONE (21:45)
--- NOTE | 2022-07-27 22:00 | NUR ---
# 16 FR Luna catheter with use of sterile technique. Immediate return of 150 cc ORANGE urine noted. Bedside drainage bag placed below level of bladder. Urine sample collected and sent to lab. Pt tolerated procedure WELL Patient unable to toilet self.
[2022-07-27 22:11] LABS: BASOPHILS # (AUTO) 0.1 K/uL (0.0-0.2); BASOPHILS % (AUTO) 0.6 % (0.0-2.0); EOSINOPHILS # (AUTO) 0.3 K/uL (0.0-0.4); EOSINOPHILS % (AUTO) 2.5 % (0.0-4.0); HEMATOCRIT 41.5 % (36-48); HEMOGLOBIN 13.6 g/dL (12.0-16.0); LYMPHOCYTES # (AUTO) 1.3 K/uL (1.0-5.5); MEAN CORPUSCULAR HEMOGLOBIN 31 pg (27-31); MEAN CORPUSCULAR HGB CONC 33 % (32-36); MEAN CORPUSCULAR VOLUME 94 fL (79.0-98.0); MONOCYTES # (AUTO) 0.8 K/uL (0.0-1.0); MONOCYTES % (AUTO) 6.4 % (1.7-9.3); NEUTROPHILS # (AUTO) 9.7 K/uL (1.8-7.7); NEUTROPHILS % (AUTO) 79.5 % (40.0-70.0); PLATELET COUNT (AUTO) 339 K/uL (130-430); RED BLOOD CELL COUNT(AUTO) 4.43 MIL/uL (4.2-6.2); RED CELL DISTRIBUTION WIDTH 13.6 % (9.0-15.0); WHITE BLOOD COUNT (AUTO) 12.2 K/uL (4.8-10.8)
--- NOTE | 2022-07-27 22:15 | NUR ---
ASSUME CARE OF PT AT THIS BY AMARI KEENE IN BED 3, PT C/O LOWER ABD PRESSURE 3\10, PT UNABLE TO URINATE SINCE THIS MORNING, PT TOOK PYRIDUM TODAY. PT HAD MAC CATHETER PLACED IN ER, STATES SLIGHT RELIEF BUT NOW HAS MORE PRESSURE RETURN. PT ON FUR POINTER, HX- COPD ON O2 AT HOME 2 L N/C. PT HAS SOB WITH AMBULATION X 3 YRS. DAUGHTER AT BEDSIDE.
[2022-07-27 22:20] LABS: ANION GAP 8 (5-15); CALCIUM 9.5 mg/dL (8.4-11.0); CHLORIDE 104 mmol/L (98-107); GLUCOSE 128 mg/dL (70-99); POTASSIUM 3.9 mmol/L (3.5-5.1); SODIUM SERUM 139 mmol/L (136-145); UREA NITROGEN, BLOOD 19 mg/dL (8-21)
[2022-07-27 22:24] LABS: BILIRUBIN,URINE NEGATIVE (NEGATIVE); BLOOD, URINE 3+ (NEGATIVE); GLUCOSE,URINE 1+ (NEGATIVE); KETONES,URINE TRACE (NEGATIVE); PROTEIN URINE 2+ (NEGATIVE)
[2022-07-27 22:29] LABS: ALANINE AMINOTRANSFERASE 29 U/L (12-78); ALBUMIN 2.8 g/dL (3.4-4.8); ASPARTATE AMINOTRANSFERASE 22 U/L (10-37); TOTAL BILIRUBIN 0.3 mg/dL (0.0-1.0)
[2022-07-27] MEDS ORDERED: NACL 0.9% 1,000 ML IV ONE (22:30)
[2022-07-27] MEDS ORDERED: cefTRIAXone 1 GM IVPB PREMIX 50 ML IV ONE (22:30)
[2022-07-27 22:38] LABS: CLARITY/URINE HAZY (CLEAR); COLOR,URINE ORANGE (YELLOW); LEUKOCYTE ESTERASE ,URINE NEGATIVE (NEGATIVE); NITRITE, URINE NEGATIVE (NEGATIVE); UROBILINOGEN,URINE >=8 (0.2-1.0)
[2022-07-27 22:42] LABS: BACTERIA,URINE FEW /HPF (None Seen); WBC,URINE 0-3 /HPF (0-3)
[2022-07-27 22:43] LABS: CALCIUM OXALATE CRYSTALS,UR 0-10 /HPF (None Seen); MUCUS,URINE None Seen /LPF (None Seen)
[2022-07-28] MEDS ORDERED: PRED20TA PO (00:09)
[2022-07-28] MEDS ORDERED: [UNRECOGNIZED DRUG - CODE] PO (00:09)
[2022-07-28] MEDS ORDERED: NACL 0.9% 1,000 ML IV ONE (00:15)
--- NOTE | 2022-07-28 00:30 | NUR ---
PT STATES SHE FEELS BETTER. SPEAKING WITH DAUGHTER AT BEDSIDE.
--- NOTE | 2022-07-28 00:45 | NUR ---
MAC CATH REMOVED PER MD ORDER, PT TOLERATED WELL.
[2022-07-28 01:07] VITALS: BP_SYST 140
--- NOTE | 2022-07-28 01:07 | NUR ---
Patient given written and verbal discharge instructions and verbalizes understanding. ER MD discussed with patient the results and treatment provided. Patient in stable condition. ID arm band removed. IV catheter removed intact and dressing applied, no active bleeding. Rx of ELECTRONICALLY CALLED TO PHARMACY. Patient educated on follow up with PMD. Pain Scale 0. Opportunity for questions provided and answered. Medication side effect fact sheet provided.
== END 2022-07-28 01:07 | disposition home or self-care (01) ==
LOC: SED 21:15
DX: N39.0 Urinary tract infection, site not specified (principal); R33.9 Retention of urine, unspecified; J44.9 Chronic obstructive pulmonary disease, unspecified; E78.5 Hyperlipidemia, unspecified; I10 Essential (primary) hypertension; Z79.899 Other long term (current) drug therapy
CPT/HCPCS: 80053; 81000; 83880; 85025; 84484; 36415; 93005; 71045; 94640; 99285; 96365; J0696; J7613

== ENCOUNTER 2023-08-03 14:02 | Inpatient (IN) | payer OTHER ==
[~2023-08-03] VITALS: Ht 154.9 cm; Wt 61.2 kg
[~2023-08-03 14:02] MED LIST changes: +[UNRECOGNIZED DRUG - CODE] PO
[2023-08-03] MEDS ORDERED: FLUT1BLS5 INH (14:07)
[2023-08-03] MEDS ORDERED: ALBMDI INH (14:07)
[2023-08-03] MEDS ORDERED: AMLO5TAB4 PO (14:12)
[2023-08-03] MEDS ORDERED: METO50TA16 PO (14:12)
[2023-08-03 14:21] VITALS: BP_SYST 134; PULSE 79; RESP 24; TEMP 97.8; O2SAT 79
[2023-08-03] MEDS ORDERED: ALBUTEROL SULFATE 0.083% 2.5 MG/3 ML VIAL.NEB INH ONE ×2 (14:30→18:00)
[2023-08-03] MEDS ORDERED: IPRATROPIUM BROM 0.5 MG/2.5 ML VIAL.NEB (ATROVENT) INH ONE (14:30)
[2023-08-03] MEDS ORDERED: methylPREDNISolone SOD SUCC/PF 62.5 MG/ML VIAL IVP ONE (14:30)
[2023-08-03 14:45] LABS: BASOPHILS % (AUTO) 0.2 % (0.0-2.0); EOSINOPHILS # (AUTO) 0.3 K/uL (0.0-0.4); EOSINOPHILS % (AUTO) 1.9 % (0.0-4.0); HEMATOCRIT 43.5 % (36-48); HEMOGLOBIN 14.2 g/dL (12.0-16.0); LYMPHOCYTES # (AUTO) 1.9 K/uL (1.0-5.5); LYMPHOCYTES % (AUTO) 11.1 % (20.5-51.5); MEAN CORPUSCULAR HEMOGLOBIN 32 pg (27-31); MEAN CORPUSCULAR HGB CONC 33 % (32-36); MEAN CORPUSCULAR VOLUME 98 fL (79.0-98.0); MONOCYTES # (AUTO) 1.9 K/uL (0.0-1.0); MONOCYTES % (AUTO) 10.8 % (1.7-9.3); PLATELET COUNT (AUTO) 217 K/uL (130-430); RED BLOOD CELL COUNT(AUTO) 4.44 MIL/uL (4.2-6.2); RED CELL DISTRIBUTION WIDTH 13.8 % (9.0-15.0); WHITE BLOOD COUNT (AUTO) 17.1 K/uL (4.8-10.8)
[2023-08-03 14:55] LABS: ANION GAP 8 (5-15); CALCIUM 8.9 mg/dL (8.4-11.0); CARBON DIOXIDE 27 mmol/L (23-29); CHLORIDE 101 mmol/L (98-107); CREATININE 0.88 mg/dL (0.55-1.30); GLUCOSE 92 mg/dL (74-106); POTASSIUM 3.9 mmol/L (3.5-5.1); SODIUM SERUM 136 mmol/L (136-145); UREA NITROGEN, BLOOD 28 mg/dL (8-21)
[2023-08-03 15:04] LABS: ABG O2 SAT% ESTIMATE 94.2 % (94.0-100.0); BLOOD GAS BASE EXCESS -0.9 mmol/L (-3.0-3.0); BLOOD GAS HCO3 22.2 mmol/L (21.0-27.0); BLOOD GAS PCO2 32.7 mmHg (35.0-45.0); BLOOD GAS PO2 66.7 mmHg (75.0-100.0)
[2023-08-03 15:11] LABS: ALLEN'S TEST POSITIVE (P)
[2023-08-03] MEDS ORDERED: cefTRIAXone 1 GM in D5W 50 ML IV ONE (17:30)
[2023-08-03] MEDS ORDERED: AZITHROMYCIN 500 MG in NS 250 ML IV ONE (18:00)
[2023-08-03] MEDS ORDERED: LEVOFLOXACIN 250 MG/D5W 50 ML IV ONE ×2 (19:15→22:12)
[2023-08-03] MEDS: METHYLPREDNISOLONE SOD SUCC 40 MG/ML VIAL IVP SCH (22:00)
[2023-08-03] MEDS ORDERED: AZITHROMYCIN 500 MG/VIAL (ZITHROMAX) IV ONE (22:12)
[2023-08-03] MEDS: LORazepam 1 MG TABLET PO SCH (22:15)
[2023-08-03 23:00] VITALS: BP_SYST 135; PULSE 78; RESP 22; TEMP 97.5
[2023-08-03 23:49] VITALS: O2SAT 93
[2023-08-04] VITALS (11 sets, daily range): BP systolic 118–135; PULSE 68–101; RESP 18–20; TEMP 97.3–98.2; O2SAT 91–96
[2023-08-04] MEDS: METHYLPREDNISOLONE SOD SUCC 40 MG/ML VIAL IVP SCH ×3 (07:07→22:12)
[2023-08-04] MEDS ORDERED: iohexoL 350 mgI/mL, 100 ML INFUS..BTL IV ONE (12:01)
[2023-08-04] MEDS ORDERED: ALPRAZolam 0.25 MG TABLET PO PRN (13:30)
[2023-08-04] MEDS ORDERED: ALBUTEROL MDI INHALATION 8 GM INH INH SCH (13:30)
[2023-08-04] MEDS ORDERED: IPRATROPIUM/ALBUTEROL SULFATE 3 ML AMPUL.NEB (DUONEB) INH PRN (13:30)
[2023-08-04] MEDS ORDERED: ALBUTEROL SULFATE 0.083% 2.5 MG/3 ML VIAL.NEB INH PRN (13:30)
[2023-08-04] MEDS ORDERED: ALBUTEROL MDI INHALATION 8 GM INH INH PRN (13:30)
[2023-08-04] MEDS ORDERED: IPRATROPIUM/ALBUTEROL SULFATE 3 ML AMPUL.NEB (DUONEB) INH SCH (15:00)
[2023-08-04] MEDS: IPRATROPIUM/ALBUTEROL SULFATE 3 ML AMPUL.NEB (DUONEB) INH SCH ×3 (15:07→22:31)
[2023-08-04] MEDS ORDERED: VANCOMYCIN HCL Non-Formulary 125 MG CAPSULE PO SCH (17:00)
[2023-08-04] MEDS ORDERED: VANCOMYCIN HCL ORAL SOLUTION 125 MG/5 ML, 150 ML PO SCH (17:00)
[2023-08-04] MEDS: AZTREONAM 1 GM in NS 50 ML IV SCH ×2 (17:24→22:12)
[2023-08-04] MEDS: AZITHROMYCIN 250 MG in NS 250 ML IV SCH (19:04)
[2023-08-04] MEDS: MONTELUKAST 10 MG TABLET PO SCH (19:06)
[2023-08-04] MEDS ORDERED: ROSUVASTATIN CALCIUM 5 MG/TAB (CRESTOR) PO SCH (21:00)
[2023-08-04] MEDS ORDERED: FLAVOXATE HCL 100 MG PO SCH (21:00)
[2023-08-04] MEDS ORDERED: METOPROLOL TARTRATE 50 MG TABLET PO SCH (21:00)
[2023-08-04] MEDS: ATORVASTATIN 20 MG TABLET PO SCH (21:59)
[2023-08-04] MEDS: LORazepam 1 MG TABLET PO SCH (22:00)
[2023-08-05] VITALS (11 sets, daily range): BP systolic 108–140; PULSE 95–102; RESP 18–20; TEMP 97.7–98.4; O2SAT 89–100
[2023-08-05] MEDS: IPRATROPIUM/ALBUTEROL SULFATE 3 ML AMPUL.NEB (DUONEB) INH SCH ×6 (03:42→23:08)
[2023-08-05] MEDS: AZTREONAM 1 GM in NS 50 ML IV SCH ×3 (05:51→22:17)
[2023-08-05] MEDS: METHYLPREDNISOLONE SOD SUCC 40 MG/ML VIAL IVP SCH ×3 (07:43→22:18)
[2023-08-05 07:46] LABS: BASOPHILS % (AUTO) 0.1 % (0.0-2.0); HEMATOCRIT 40.4 % (36-48); LYMPHOCYTES # (AUTO) 0.5 K/uL (1.0-5.5); LYMPHOCYTES % (AUTO) 2.8 % (20.5-51.5); MEAN CORPUSCULAR HEMOGLOBIN 32 pg (27-31); MEAN CORPUSCULAR HGB CONC 32 % (32-36); MEAN CORPUSCULAR VOLUME 99 fL (79.0-98.0); MONOCYTES % (AUTO) 5.2 % (1.7-9.3); NEUTROPHILS # (AUTO) 17.4 K/uL (1.8-7.7); NEUTROPHILS % (AUTO) 91.9 % (40.0-70.0); PLATELET COUNT (AUTO) 234 K/uL (130-430); RED CELL DISTRIBUTION WIDTH 13.5 % (9.0-15.0); WHITE BLOOD COUNT (AUTO) 18.9 K/uL (4.8-10.8)
[2023-08-05] MEDS ORDERED: HYDROCHLOROTHIAZIDE 25 MG TABLET (HCTZ) PO SCH (09:00)
[2023-08-05] MEDS ORDERED: AZITHROMYCIN 500 MG TABLET PO SCH (09:00)
[2023-08-05] MEDS ORDERED: predniSONE 20 MG TABLET PO SCH ×3 (09:00)
[2023-08-05] MEDS ORDERED: amLODIPine BESYLATE 5 MG TABLET PO SCH (09:00)
[2023-08-05] MEDS ORDERED: predniSONE 10 MG TABLET PO SCH (09:00)
[2023-08-05] MEDS: amLODIPine BESYLATE 5 MG TABLET PO SCH (10:46)
[2023-08-05] MEDS: HYDROCHLOROTHIAZIDE 25 MG TABLET (HCTZ) PO SCH (10:47)
[2023-08-05] MEDS: METOPROLOL SUCCINATE 50 MG TAB.SR.24H (TOPROL XL) PO SCH (10:48)
[2023-08-05] MEDS: SERTRALINE HCL 50 MG TABLET PO SCH (10:48)
[2023-08-05] MEDS: ACETAMINOPHEN 500 MG TABLET PO PRN (12:41)
[2023-08-05] MEDS: AZITHROMYCIN 250 MG in NS 250 ML IV SCH (16:14)
[2023-08-05] MEDS: MONTELUKAST 10 MG TABLET PO SCH (18:06)
[2023-08-05] MEDS: LACTOBACILLUS RHAMNOSUS GG 1 CAP CAPSULE PO SCH (20:59)
[2023-08-05] MEDS: ATORVASTATIN 20 MG TABLET PO SCH (20:59)
[2023-08-05] MEDS: LORazepam 1 MG TABLET PO SCH (20:59)
[2023-08-06] VITALS (10 sets, daily range): BP systolic 125–149; PULSE 81–95; RESP 17–20; TEMP 98–99; O2SAT 89–99
[2023-08-06] MEDS: AZTREONAM 1 GM in NS 50 ML IV SCH ×3 (06:10→22:28)
[2023-08-06] MEDS: METHYLPREDNISOLONE SOD SUCC 40 MG/ML VIAL IVP SCH ×3 (06:10→22:28)
[2023-08-06 06:25] LABS: BASOPHILS % (AUTO) 0.1 % (0.0-2.0); HEMATOCRIT 38.4 % (36-48); HEMOGLOBIN 12.4 g/dL (12.0-16.0); LYMPHOCYTES # (AUTO) 0.4 K/uL (1.0-5.5); LYMPHOCYTES % (AUTO) 2.3 % (20.5-51.5); MEAN CORPUSCULAR HEMOGLOBIN 32 pg (27-31); MEAN CORPUSCULAR HGB CONC 32 % (32-36); MEAN CORPUSCULAR VOLUME 98 fL (79.0-98.0); MONOCYTES # (AUTO) 0.5 K/uL (0.0-1.0); MONOCYTES % (AUTO) 3.1 % (1.7-9.3); NEUTROPHILS # (AUTO) 16.4 K/uL (1.8-7.7); NEUTROPHILS % (AUTO) 94.5 % (40.0-70.0); PLATELET COUNT (AUTO) 219 K/uL (130-430); RED BLOOD CELL COUNT(AUTO) 3.92 MIL/uL (4.2-6.2); RED CELL DISTRIBUTION WIDTH 13.7 % (9.0-15.0); WHITE BLOOD COUNT (AUTO) 17.4 K/uL (4.8-10.8)
[2023-08-06 06:40] LABS: ANION GAP 7 (5-15); CALCIUM 8.5 mg/dL (8.4-11.0); CARBON DIOXIDE 25 mmol/L (23-29); CHLORIDE 104 mmol/L (98-107); CREATININE 0.96 mg/dL (0.55-1.30); GLUCOSE 154 mg/dL (74-106); POTASSIUM 4.1 mmol/L (3.5-5.1); SODIUM SERUM 136 mmol/L (136-145); UREA NITROGEN, BLOOD 26 mg/dL (8-21)
[2023-08-06] MEDS: IPRATROPIUM/ALBUTEROL SULFATE 3 ML AMPUL.NEB (DUONEB) INH SCH ×5 (07:50→23:05)
[2023-08-06] MEDS: METOPROLOL SUCCINATE 50 MG TAB.SR.24H (TOPROL XL) PO SCH (08:54)
[2023-08-06] MEDS: LACTOBACILLUS RHAMNOSUS GG 1 CAP CAPSULE PO SCH ×2 (08:54→20:43)
[2023-08-06] MEDS: SERTRALINE HCL 50 MG TABLET PO SCH (08:55)
[2023-08-06] MEDS: HYDROCHLOROTHIAZIDE 25 MG TABLET (HCTZ) PO SCH (08:55)
[2023-08-06] MEDS: amLODIPine BESYLATE 5 MG TABLET PO SCH (08:55)
[2023-08-06] MEDS ORDERED: LEVOFLOXACIN 250 MG/D5W 50 ML IV SCH (12:00)
[2023-08-06] MEDS: AZITHROMYCIN 250 MG in NS 250 ML IV SCH (16:31)
[2023-08-06] MEDS: MONTELUKAST 10 MG TABLET PO SCH (17:29)
[2023-08-06] MEDS: ATORVASTATIN 20 MG TABLET PO SCH (20:43)
[2023-08-06] MEDS: LORazepam 1 MG TABLET PO SCH (20:43)
[2023-08-07] VITALS (12 sets, daily range): BP systolic 112–152; PULSE 65–91; RESP 18–21; TEMP 97.9–98.6; O2SAT 90–98
[2023-08-07] MEDS: IPRATROPIUM/ALBUTEROL SULFATE 3 ML AMPUL.NEB (DUONEB) INH SCH ×6 (03:00→23:22)
[2023-08-07] MEDS: METHYLPREDNISOLONE SOD SUCC 40 MG/ML VIAL IVP SCH ×3 (05:40→21:54)
[2023-08-07] MEDS: AZTREONAM 1 GM in NS 50 ML IV SCH (05:41)
[2023-08-07] MEDS ORDERED: CALAMINE 120 ML TOPICAL LOTION TP PRN (07:00)
[2023-08-07] MEDS ORDERED: DIPHENHYDRAMINE HCL 25 MG CAPSULE PO ONE (07:00)
[2023-08-07 07:16] LABS: BASOPHILS % (AUTO) 0.1 % (0.0-2.0); EOSINOPHILS % (AUTO) 0.1 % (0.0-4.0); HEMATOCRIT 44.1 % (36-48); HEMOGLOBIN 14.1 g/dL (12.0-16.0); LYMPHOCYTES # (AUTO) 0.9 K/uL (1.0-5.5); LYMPHOCYTES % (AUTO) 4.2 % (20.5-51.5); MEAN CORPUSCULAR HEMOGLOBIN 32 pg (27-31); MEAN CORPUSCULAR HGB CONC 32 % (32-36); MEAN CORPUSCULAR VOLUME 98 fL (79.0-98.0); MONOCYTES % (AUTO) 4.9 % (1.7-9.3); NEUTROPHILS # (AUTO) 18.4 K/uL (1.8-7.7); NEUTROPHILS % (AUTO) 90.7 % (40.0-70.0); PLATELET COUNT (AUTO) 274 K/uL (130-430); RED BLOOD CELL COUNT(AUTO) 4.49 MIL/uL (4.2-6.2); RED CELL DISTRIBUTION WIDTH 13.5 % (9.0-15.0); WHITE BLOOD COUNT (AUTO) 20.3 K/uL (4.8-10.8)
[2023-08-07 07:33] LABS: ANION GAP 11 (5-15); CALCIUM 8.9 mg/dL (8.4-11.0); CARBON DIOXIDE 24 mmol/L (23-29); CHLORIDE 103 mmol/L (98-107); CREATININE 1.03 mg/dL (0.55-1.30); GLUCOSE 151 mg/dL (74-106); POTASSIUM 4.2 mmol/L (3.5-5.1); SODIUM SERUM 138 mmol/L (136-145); UREA NITROGEN, BLOOD 25 mg/dL (8-21)
[2023-08-07] MEDS: SERTRALINE HCL 50 MG TABLET PO SCH (08:12)
[2023-08-07] MEDS: LACTOBACILLUS RHAMNOSUS GG 1 CAP CAPSULE PO SCH ×2 (08:12→22:07)
[2023-08-07] MEDS: HYDROCHLOROTHIAZIDE 25 MG TABLET (HCTZ) PO SCH (08:12)
[2023-08-07] MEDS: METOPROLOL SUCCINATE 50 MG TAB.SR.24H (TOPROL XL) PO SCH (08:13)
[2023-08-07] MEDS: amLODIPine BESYLATE 5 MG TABLET PO SCH (08:13)
[2023-08-07] MEDS: PRAMOXINE HCL/CALAMINE 177 ML LOTION TP PRN ×2 (08:50→18:40)
[2023-08-07 12:13] LABS: COVID19 ANTIGEN SOFIA FIA NEGATIVE (NEGATIVE); INFLUENZA TYPE A negative (NEGATIVE); INFLUENZA TYPE B NEGATIVE (NEGATIVE)
[2023-08-07] MEDS ORDERED: DOXYCYCLINE HYCLATE 100 MG in D5W 100 ML IV ONE (13:00)
[2023-08-07] MEDS: AZITHROMYCIN 250 MG in NS 250 ML IV SCH (15:45)
[2023-08-07] MEDS: MONTELUKAST 10 MG TABLET PO SCH (17:48)
[2023-08-07] MEDS: ATORVASTATIN 20 MG TABLET PO SCH (22:06)
[2023-08-07] MEDS: DOXYCYCLINE HYCLATE 100 MG in D5W 100 ML IV SCH (22:06)
[2023-08-07] MEDS: LORazepam 1 MG TABLET PO SCH (22:07)
[2023-08-07] MEDS ORDERED: DIPHENHYDRAMINE HCL 12.5 MG/5 ML UDC PO ONE (22:30)
[2023-08-07] MEDS ORDERED: DIPHENHYDRAMINE HCL 25 MG CAPSULE ONE (23:02)
[2023-08-08] VITALS (10 sets, daily range): BP systolic 105–136; PULSE 76–92; RESP 15–20; TEMP 97.6–98.5; O2SAT 89–97
[2023-08-08] MEDS: METHYLPREDNISOLONE SOD SUCC 40 MG/ML VIAL IVP SCH ×3 (01:14→23:45)
[2023-08-08] MEDS: IPRATROPIUM/ALBUTEROL SULFATE 3 ML AMPUL.NEB (DUONEB) INH SCH ×6 (03:00→23:00)
[2023-08-08 06:21] LABS: BASOPHILS % (AUTO) 0.3 % (0.0-2.0); HEMATOCRIT 39.8 % (36-48); LYMPHOCYTES # (AUTO) 1.8 K/uL (1.0-5.5); LYMPHOCYTES % (AUTO) 11.8 % (20.5-51.5); MEAN CORPUSCULAR HEMOGLOBIN 32 pg (27-31); MEAN CORPUSCULAR HGB CONC 33 % (32-36); MEAN CORPUSCULAR VOLUME 97 fL (79.0-98.0); MONOCYTES # (AUTO) 1.3 K/uL (0.0-1.0); MONOCYTES % (AUTO) 8.3 % (1.7-9.3); NEUTROPHILS % (AUTO) 79.6 % (40.0-70.0); PLATELET COUNT (AUTO) 238 K/uL (130-430); RED CELL DISTRIBUTION WIDTH 13.4 % (9.0-15.0)
[2023-08-08 06:37] LABS: ANION GAP 9 (5-15); CALCIUM 8.7 mg/dL (8.4-11.0); CARBON DIOXIDE 26 mmol/L (23-29); CHLORIDE 105 mmol/L (98-107); CREATININE 0.99 mg/dL (0.55-1.30); GLUCOSE 96 mg/dL (74-106); POTASSIUM 3.5 mmol/L (3.5-5.1); SODIUM SERUM 140 mmol/L (136-145); UREA NITROGEN, BLOOD 25 mg/dL (8-21)
[2023-08-08] MEDS: LACTOBACILLUS RHAMNOSUS GG 1 CAP CAPSULE PO SCH ×2 (10:01→20:35)
[2023-08-08] MEDS: HYDROCHLOROTHIAZIDE 25 MG TABLET (HCTZ) PO SCH (10:08)
[2023-08-08] MEDS: METOPROLOL SUCCINATE 50 MG TAB.SR.24H (TOPROL XL) PO SCH (10:10)
[2023-08-08] MEDS: amLODIPine BESYLATE 5 MG TABLET PO SCH (10:10)
[2023-08-08] MEDS: SERTRALINE HCL 50 MG TABLET PO SCH (10:10)
[2023-08-08] MEDS: DOXYCYCLINE HYCLATE 100 MG in D5W 100 ML IV SCH ×2 (10:43→21:00)
[2023-08-08] MEDS: ACETYLCYSTEINE 20% 4 ML VIAL (RT) INH SCH ×2 (15:13→20:17)
[2023-08-08] MEDS: AZITHROMYCIN 250 MG in NS 250 ML IV SCH (16:07)
[2023-08-08] MEDS: ACETAMINOPHEN 500 MG TABLET PO PRN (17:45)
[2023-08-08] MEDS: MONTELUKAST 10 MG TABLET PO SCH (17:59)
[2023-08-08] MEDS: LORazepam 1 MG TABLET PO SCH (20:35)
[2023-08-08] MEDS: ATORVASTATIN 20 MG TABLET PO SCH (20:35)
[2023-08-08] MEDS ORDERED: METHYLPREDNISOLONE SOD SUCC 40 MG/ML VIAL ONE (22:47)
[2023-08-09] VITALS (9 sets, daily range): BP systolic 108–114; PULSE 63–92; RESP 18–22; TEMP 96.5–98.4; O2SAT 90–93
[2023-08-09] MEDS: IPRATROPIUM/ALBUTEROL SULFATE 3 ML AMPUL.NEB (DUONEB) INH SCH ×3 (03:00→11:39)
[2023-08-09] MEDS ORDERED: METHYLPREDNISOLONE SOD SUCC 40 MG/ML VIAL ONE (04:57)
[2023-08-09] MEDS: METHYLPREDNISOLONE SOD SUCC 40 MG/ML VIAL IVP SCH (05:50)
[2023-08-09 07:18] LABS: HEMATOCRIT 42.9 % (36-48); HEMOGLOBIN 14.1 g/dL (12.0-16.0); LYMPHOCYTES # (AUTO) 0.5 K/uL (1.0-5.5); LYMPHOCYTES % (AUTO) 3.6 % (20.5-51.5); MEAN CORPUSCULAR HEMOGLOBIN 32 pg (27-31); MEAN CORPUSCULAR HGB CONC 33 % (32-36); MEAN CORPUSCULAR VOLUME 97 fL (79.0-98.0); MONOCYTES # (AUTO) 0.2 K/uL (0.0-1.0); MONOCYTES % (AUTO) 1.2 % (1.7-9.3); NEUTROPHILS # (AUTO) 14.4 K/uL (1.8-7.7); NEUTROPHILS % (AUTO) 95.2 % (40.0-70.0); PLATELET COUNT (AUTO) 257 K/uL (130-430); RED BLOOD CELL COUNT(AUTO) 4.41 MIL/uL (4.2-6.2); RED CELL DISTRIBUTION WIDTH 13.4 % (9.0-15.0); WHITE BLOOD COUNT (AUTO) 15.1 K/uL (4.8-10.8)
[2023-08-09] MEDS: ACETYLCYSTEINE 20% 4 ML VIAL (RT) INH SCH (07:24)
[2023-08-09] MEDS ORDERED: predniSONE 20 MG TABLET PO SCH (09:00)
[2023-08-09] MEDS: LACTOBACILLUS RHAMNOSUS GG 1 CAP CAPSULE PO SCH (09:32)
[2023-08-09] MEDS: SERTRALINE HCL 50 MG TABLET PO SCH (09:32)
[2023-08-09] MEDS: HYDROCHLOROTHIAZIDE 25 MG TABLET (HCTZ) PO SCH (09:33)
[2023-08-09] MEDS: METOPROLOL SUCCINATE 50 MG TAB.SR.24H (TOPROL XL) PO SCH (09:34)
[2023-08-09] MEDS: amLODIPine BESYLATE 5 MG TABLET PO SCH (09:34)
[2023-08-09] MEDS: DOXYCYCLINE HYCLATE 100 MG in D5W 100 ML IV SCH (09:47)
[2023-08-09] MEDS ORDERED: FUROSEMIDE 20 MG/2 ML VIAL IVP ONE (10:15)
[2023-08-09] MEDS ORDERED: MUC20RT INH (11:53)
[2023-08-09] MEDS ORDERED: PRED10TA PO (11:53)
[2023-08-09] MEDS ORDERED: DOXY100C5 PO (11:53)
[2023-08-10 20:06] LABS: LEGIONELLA PNEUMOPHILIA AB <0.91 OD ratio (0.00-0.90)
[2023-08-10 21:06] LABS: MYCOPLASMA PNEUMONIAE IgM <770 U/mL (0-769)
[2023-08-11 00:06] LABS: QUANTIFERON TB GOLD Indeterminate (Negative)
== END 2023-08-09 13:20 | disposition home or self-care (01) | DRG 193 ==
LOC: SED 14:02 → SMU 17:17
PROVIDERS: ADMIT Specialist; ATTEND Specialist
DX: J18.9 Pneumonia, unspecified organism (principal); J96.21 Acute and chronic respiratory failure with hypoxia; J44.1 Chronic obstructive pulmonary disease with (acute) exacerbation; J44.0 Chronic obstructive pulmonary disease with (acute) lower respiratory infection; R65.10 Systemic inflammatory response syndrome (SIRS) of non-infectious origin without acute organ dysfunction; E78.5 Hyperlipidemia, unspecified; M81.0 Age-related osteoporosis without current pathological fracture; F41.9 Anxiety disorder, unspecified; Z20.822 Contact with and (suspected) exposure to COVID-19; J20.9 Acute bronchitis, unspecified; E66.9 Obesity, unspecified; J84.10 Pulmonary fibrosis, unspecified; Z99.81 Dependence on supplemental oxygen; Z88.1 Allergy status to other antibiotic agents; Z87.891 Personal history of nicotine dependence; Z79.899 Other long term (current) drug therapy; Z68.25 Body mass index [BMI] 25.0-25.9, adult
CPT/HCPCS: 36415; 36600; 71045; 71275; 76376; 80048; 82803; 85025; 86480; 86635; 86713; 86738; 94640; 94760; 96365; 99285; J0456; J1030; J1940; J1956; J2930; J3490; J7030; J7050; J7060; J7512; J7608; Q0163; Q9967

== ENCOUNTER 2023-11-07 10:10 | Inpatient (IN) | payer OTHER ==
[~2023-11-07] VITALS: Ht 152.4 cm; Wt 55.3 kg
[~2023-11-07 10:10] MED LIST changes: -AZIT500T10 PO; +DOXY100C5 PO; +FLUT1BLS5 INH; +MUC20RT INH; -PRED20TA PO; -VANC25SO PO; -[UNRECOGNIZED DRUG - CODE] PO; -[UNRECOGNIZED DRUG - CODE] PO
[2023-11-07 10:46] VITALS: BP_SYST 102; PULSE 85; RESP 26; TEMP 99.2; O2SAT 84
[2023-11-07] MEDS ORDERED: IPRATROPIUM/ALBUTEROL SULFATE 3 ML AMPUL.NEB (DUONEB) INH ONE (11:00)
[2023-11-07] MEDS ORDERED: METHYLPREDNISOLONE SOD SUCC 40 MG/ML VIAL IVP ONE (11:00)
[2023-11-07 11:39] LABS: ABG O2 SAT% ESTIMATE 89.4 % (94.0-100.0); BLOOD GAS BASE EXCESS -4.7 mmol/L (-3.0-3.0); BLOOD GAS HCO3 20.8 mmol/L (21.0-27.0); BLOOD GAS PCO2 39.9 mmHg (35.0-45.0); BLOOD GAS PH 7.334 (7.350-7.450)
[2023-11-07 11:41] LABS: ALLEN'S TEST POSITIVE (P); BLOOD GAS PO2 59.7 mmHg (75.0-100.0)
[2023-11-07 11:59] LABS: BASOPHILS % (AUTO) 0.5 % (0.0-2.0); EOSINOPHILS % (AUTO) 0.5 % (0.0-4.0); HEMATOCRIT 40.6 % (36-48); HEMOGLOBIN 13.5 g/dL (12.0-16.0); LYMPHOCYTES # (AUTO) 0.7 K/uL (1.0-5.5); LYMPHOCYTES % (AUTO) 8.8 % (20.5-51.5); MEAN CORPUSCULAR HEMOGLOBIN 32 pg (27-31); MEAN CORPUSCULAR HGB CONC 33 % (32-36); MEAN CORPUSCULAR VOLUME 96 fL (79.0-98.0); MONOCYTES % (AUTO) 12.6 % (1.7-9.3); NEUTROPHILS # (AUTO) 5.9 K/uL (1.8-7.7); NEUTROPHILS % (AUTO) 77.6 % (40.0-70.0); PLATELET COUNT (AUTO) 167 K/uL (130-430); RED BLOOD CELL COUNT(AUTO) 4.24 MIL/uL (4.2-6.2); RED CELL DISTRIBUTION WIDTH 13.7 % (9.0-15.0); WHITE BLOOD COUNT (AUTO) 7.6 K/uL (4.8-10.8)
[2023-11-07 12:10] LABS: ALANINE AMINOTRANSFERASE 22 U/L (12-78); ALBUMIN 3.5 g/dL (3.4-4.8); ANION GAP 8 (5-15); ASPARTATE AMINOTRANSFERASE 35 U/L (10-37); CALCIUM 8.4 mg/dL (8.4-11.0); CARBON DIOXIDE 29 mmol/L (23-29); CHLORIDE 103 mmol/L (98-107); CREATININE 1.39 mg/dL (0.55-1.30); GLUCOSE 103 mg/dL (74-106); POTASSIUM 4.4 mmol/L (3.5-5.1); SODIUM SERUM 140 mmol/L (136-145); TOTAL BILIRUBIN 0.4 mg/dL (0.0-1.0); TOTAL PROTEIN, SERUM 6.9 g/dL (6.4-8.3); UREA NITROGEN, BLOOD 24 mg/dL (8-21)
[2023-11-07 12:13] LABS: BILIRUBIN,DIRECT 0.1 mg/dL (0.0-0.3); LIPASE 27 U/L (16-77)
[2023-11-07] MEDS ORDERED: NACL 0.9% 1,000 ML IV ONE (12:15)
[2023-11-07] MEDS ORDERED: MORPHINE 4 MG INJ. 4 MG/ML VIAL IVP ONE ×2 (12:15→13:30)
[2023-11-07] MEDS ORDERED: ONDANSETRON HCL 4 MG/2 ML VIAL IVP ONE ×2 (12:15→13:30)
[2023-11-07 12:30] LABS: PROTHROMBIN TIME 10.4 SECS (9.5-12.5)
[2023-11-07 12:33] LABS: INFLUENZA TYPE A Negative (NEGATIVE); INFLUENZA TYPE B NEGATIVE (NEGATIVE)
[2023-11-07] MEDS ORDERED: HYDROcodone/ACETAMIN 5-325 MG TAB (NORCO/ VICODIN) PO PRN (13:30)
[2023-11-07] MEDS ORDERED: AZITHROMYCIN 500 MG in NS 250 ML IV SCH ×2 (13:30→15:00)
[2023-11-07] MEDS ORDERED: ACETAMINOPHEN 325 MG TABLET PO PRN ×3 (13:30→13:45)
[2023-11-07] MEDS ORDERED: amLODIPine BESYLATE 5 MG TABLET PO ONE (14:00)
[2023-11-07 14:31] VITALS: BP_SYST 110; PULSE 90; O2SAT 89
[2023-11-07] MEDS ORDERED: IPRATROPIUM/ALBUTEROL SULFATE 3 ML AMPUL.NEB (DUONEB) INH SCH (15:00)
[2023-11-07 15:34] VITALS: O2SAT 88
[2023-11-07] MEDS: MONTELUKAST 10 MG TABLET PO SCH (20:22)
[2023-11-07] MEDS: IPRATROPIUM/ALBUTEROL SULFATE 3 ML AMPUL.NEB (DUONEB) INH SCH ×2 (20:26→22:49)
[2023-11-07] MEDS: methylPREDNISolone SOD SUCC/PF 62.5 MG/ML VIAL IVP SCH (20:29)
[2023-11-07 20:30] VITALS: O2SAT 92
[2023-11-07] MEDS ORDERED: ATORVASTATIN 20 MG TABLET PO SCH (21:00)
[2023-11-07 22:50] VITALS: O2SAT 94
[2023-11-07 23:30] VITALS: O2SAT 95
[2023-11-08] MEDS: methylPREDNISolone SOD SUCC/PF 62.5 MG/ML VIAL IVP SCH ×4 (00:30→18:08)
[2023-11-08 03:02] LABS: BILIRUBIN,URINE NEGATIVE (NEGATIVE); BLOOD, URINE NEGATIVE (NEGATIVE); CLARITY/URINE CLEAR (CLEAR); COLOR,URINE YELLOW (YELLOW); GLUCOSE,URINE NEGATIVE (NEGATIVE); KETONES,URINE TRACE (NEGATIVE); LEUKOCYTE ESTERASE ,URINE NEGATIVE (NEGATIVE); NITRITE, URINE NEGATIVE (NEGATIVE); PH,URINE 5.5 (5.0-8.0); PROTEIN URINE NEGATIVE (NEGATIVE); UROBILINOGEN,URINE 0.2 (0.2-1.0)
[2023-11-08 03:50] VITALS: O2SAT 94
[2023-11-08] MEDS: IPRATROPIUM/ALBUTEROL SULFATE 3 ML AMPUL.NEB (DUONEB) INH SCH ×6 (04:15→23:56)
[2023-11-08 04:58] LABS: BASOPHILS % (AUTO) 0.1 % (0.0-2.0); HEMATOCRIT 38.8 % (36-48); HEMOGLOBIN 12.5 g/dL (12.0-16.0); LYMPHOCYTES # (AUTO) 0.3 K/uL (1.0-5.5); LYMPHOCYTES % (AUTO) 8.4 % (20.5-51.5); MEAN CORPUSCULAR HEMOGLOBIN 31 pg (27-31); MEAN CORPUSCULAR HGB CONC 32 % (32-36); MEAN CORPUSCULAR VOLUME 96 fL (79.0-98.0); MONOCYTES # (AUTO) 0.1 K/uL (0.0-1.0); MONOCYTES % (AUTO) 2.6 % (1.7-9.3); NEUTROPHILS # (AUTO) 3.2 K/uL (1.8-7.7); NEUTROPHILS % (AUTO) 88.9 % (40.0-70.0); PLATELET COUNT (AUTO) 155 K/uL (130-430); RED BLOOD CELL COUNT(AUTO) 4.06 MIL/uL (4.2-6.2); RED CELL DISTRIBUTION WIDTH 13.6 % (9.0-15.0); WHITE BLOOD COUNT (AUTO) 3.6 K/uL (4.8-10.8)
[2023-11-08 05:16] LABS: ALANINE AMINOTRANSFERASE 19 U/L (12-78); ALBUMIN 3.2 g/dL (3.4-4.8); ANION GAP 9 (5-15); ASPARTATE AMINOTRANSFERASE 32 U/L (10-37); CALCIUM 8.2 mg/dL (8.4-11.0); CARBON DIOXIDE 23 mmol/L (23-29); CHLORIDE 103 mmol/L (98-107); CREATININE 1.15 mg/dL (0.55-1.30); GLUCOSE 178 mg/dL (74-106); POTASSIUM 4.4 mmol/L (3.5-5.1); SODIUM SERUM 135 mmol/L (136-145); TOTAL BILIRUBIN 0.3 mg/dL (0.0-1.0); TOTAL PROTEIN, SERUM 6.5 g/dL (6.4-8.3); UREA NITROGEN, BLOOD 22 mg/dL (8-21)
[2023-11-08 07:05] VITALS: O2SAT 90
[2023-11-08] MEDS ORDERED: ALPRAZolam 0.25 MG TABLET PO ONE (08:30)
[2023-11-08] MEDS ORDERED: methylPREDNISolone SOD SUCC/PF 62.5 MG/ML VIAL IVP SCH (09:00)
[2023-11-08] MEDS: amLODIPine BESYLATE 5 MG TABLET PO SCH (09:00)
[2023-11-08] MEDS: ENOXAPARIN SODIUM 30 MG/0.3 ML SYRINGE SUBCUT SCH (09:13)
[2023-11-08 11:40] VITALS: O2SAT 91
[2023-11-08 14:05] VITALS: O2SAT 90
[2023-11-08] MEDS ORDERED: MORPHINE 4 MG INJ. 4 MG/ML VIAL ONE (16:52)
[2023-11-08] MEDS: MONTELUKAST 10 MG TABLET PO SCH (18:08)
[2023-11-08 19:40] VITALS: O2SAT 95
[2023-11-08] MEDS ORDERED: SENNA 8.8 MG/5 ML UDC PO ONE (21:00)
[2023-11-08] MEDS ORDERED: ATORVASTATIN 10 MG TABLET PO SCH (21:00)
[2023-11-08] MEDS: ATORVASTATIN 20 MG TABLET PO SCH (21:36)
[2023-11-08] MEDS: DOCUSATE SODIUM 250 MG CAPSULE PO SCH (21:37)
[2023-11-08 23:50] VITALS: O2SAT 92
[2023-11-09] VITALS (19 sets, daily range): BP systolic 95–136; PULSE 98–149; RESP 23–54; TEMP 97.8–98.7; O2SAT 84–100
[2023-11-09] MEDS: methylPREDNISolone SOD SUCC/PF 62.5 MG/ML VIAL IVP SCH ×4 (00:17→17:13)
[2023-11-09] MEDS: IPRATROPIUM/ALBUTEROL SULFATE 3 ML AMPUL.NEB (DUONEB) INH SCH ×5 (07:54→23:17)
[2023-11-09] MEDS: ENOXAPARIN SODIUM 30 MG/0.3 ML SYRINGE SUBCUT SCH (08:58)
[2023-11-09] MEDS ORDERED: DOCUSATE SODIUM 100 MG CAPSULE PO ONE (08:58)
[2023-11-09] MEDS: DOCUSATE SODIUM 250 MG CAPSULE PO SCH ×2 (08:58→20:58)
[2023-11-09] MEDS: amLODIPine BESYLATE 5 MG TABLET PO SCH (08:59)
[2023-11-09] MEDS ORDERED: POLYETHYLENE GLYCOL 3350, 17 GM/ POWD.PACK PO SCH (09:00)
[2023-11-09 09:01] LABS: BASOPHILS % (AUTO) 0.3 % (0.0-2.0); HEMATOCRIT 42.7 % (36-48); HEMOGLOBIN 13.6 g/dL (12.0-16.0); LYMPHOCYTES # (AUTO) 0.5 K/uL (1.0-5.5); LYMPHOCYTES % (AUTO) 3.9 % (20.5-51.5); MEAN CORPUSCULAR HEMOGLOBIN 31 pg (27-31); MEAN CORPUSCULAR HGB CONC 32 % (32-36); MEAN CORPUSCULAR VOLUME 96 fL (79.0-98.0); MONOCYTES # (AUTO) 0.8 K/uL (0.0-1.0); MONOCYTES % (AUTO) 6.1 % (1.7-9.3); NEUTROPHILS % (AUTO) 89.7 % (40.0-70.0); PLATELET COUNT (AUTO) 188 K/uL (130-430); RED BLOOD CELL COUNT(AUTO) 4.44 MIL/uL (4.2-6.2); RED CELL DISTRIBUTION WIDTH 14.1 % (9.0-15.0); WHITE BLOOD COUNT (AUTO) 13.4 K/uL (4.8-10.8)
[2023-11-09 09:29] LABS: ALBUMIN 3.6 g/dL (3.4-4.8); ANION GAP 10 (5-15); CALCIUM 9.6 mg/dL (8.4-11.0); CARBON DIOXIDE 22 mmol/L (23-29); CHLORIDE 106 mmol/L (98-107); CREATININE 1.27 mg/dL (0.55-1.30); GLUCOSE 168 mg/dL (74-106); POTASSIUM 4.3 mmol/L (3.5-5.1); SODIUM SERUM 138 mmol/L (136-145); TOTAL BILIRUBIN 0.4 mg/dL (0.0-1.0); TOTAL PROTEIN, SERUM 7.1 g/dL (6.4-8.3); UREA NITROGEN, BLOOD 29 mg/dL (8-21)
[2023-11-09 09:45] LABS: ALANINE AMINOTRANSFERASE 34 U/L (12-78); ASPARTATE AMINOTRANSFERASE 58 U/L (10-37)
[2023-11-09] MEDS ORDERED: SODIUM PHOSPHATE,MONO-DIBASIC 133 ML ENEMA RC ONE (13:00)
[2023-11-09] MEDS ORDERED: LACTOBACILLUS RHAMNOSUS GG 1 CAP CAPSULE PO ONE (13:45)
[2023-11-09] MEDS ORDERED: POLYETHYLENE GLYCOL 3350, 17 GM/ POWD.PACK PO ONE (13:45)
[2023-11-09] MEDS: LORazepam 2 MG/ML VIAL IVP PRN (13:57)
[2023-11-09] MEDS: CLINDAMYCIN 900 mg/50mL D5W 50 ML IV SCH ×2 (14:26→20:58)
[2023-11-09] MEDS: ALPRAZolam 0.25 MG TABLET PO PRN (16:53)
[2023-11-09] MEDS: MONTELUKAST 10 MG TABLET PO SCH (17:12)
[2023-11-09] MEDS: MILK OF MAGNESIA 30 ML UDC PO PRN (17:16)
[2023-11-09] MEDS: ATORVASTATIN 20 MG TABLET PO SCH (20:58)
[2023-11-09] MEDS: LACTOBACILLUS RHAMNOSUS GG 1 CAP CAPSULE PO SCH (20:58)
[2023-11-10] VITALS (29 sets, daily range): BP systolic 98–172; PULSE 71–125; RESP 18–44; TEMP 97.5–98.9; O2SAT 65–100
[2023-11-10] MEDS: methylPREDNISolone SOD SUCC/PF 62.5 MG/ML VIAL IVP SCH ×4 (00:11→18:47)
[2023-11-10] MEDS: IPRATROPIUM/ALBUTEROL SULFATE 3 ML AMPUL.NEB (DUONEB) INH SCH ×5 (04:17→19:37)
[2023-11-10] MEDS: CLINDAMYCIN 900 mg/50mL D5W 50 ML IV SCH (05:50)
[2023-11-10 06:38] LABS: BASOPHILS % (AUTO) 0.1 % (0.0-2.0); HEMATOCRIT 37.5 % (36-48); LYMPHOCYTES # (AUTO) 0.4 K/uL (1.0-5.5); LYMPHOCYTES % (AUTO) 2.9 % (20.5-51.5); MEAN CORPUSCULAR HEMOGLOBIN 31 pg (27-31); MEAN CORPUSCULAR HGB CONC 32 % (32-36); MEAN CORPUSCULAR VOLUME 96 fL (79.0-98.0); MONOCYTES # (AUTO) 0.8 K/uL (0.0-1.0); MONOCYTES % (AUTO) 6.6 % (1.7-9.3); NEUTROPHILS # (AUTO) 11.1 K/uL (1.8-7.7); NEUTROPHILS % (AUTO) 90.4 % (40.0-70.0); PLATELET COUNT (AUTO) 158 K/uL (130-430); RED BLOOD CELL COUNT(AUTO) 3.92 MIL/uL (4.2-6.2); RED CELL DISTRIBUTION WIDTH 13.8 % (9.0-15.0); WHITE BLOOD COUNT (AUTO) 12.3 K/uL (4.8-10.8)
[2023-11-10 07:16] LABS: ANION GAP 7 (5-15); CALCIUM 9.2 mg/dL (8.4-11.0); CARBON DIOXIDE 25 mmol/L (23-29); CHLORIDE 108 mmol/L (98-107); CREATININE 1.16 mg/dL (0.55-1.30); GLUCOSE 152 mg/dL (74-106); POTASSIUM 4.6 mmol/L (3.5-5.1); SODIUM SERUM 140 mmol/L (136-145); UREA NITROGEN, BLOOD 36 mg/dL (8-21)
[2023-11-10] MEDS: POLYETHYLENE GLYCOL 3350, 17 GM/ POWD.PACK PO SCH (08:32)
[2023-11-10] MEDS: DOCUSATE SODIUM 250 MG CAPSULE PO SCH ×2 (08:32→20:27)
[2023-11-10] MEDS: ENOXAPARIN SODIUM 30 MG/0.3 ML SYRINGE SUBCUT SCH (08:32)
[2023-11-10] MEDS: LACTOBACILLUS RHAMNOSUS GG 1 CAP CAPSULE PO SCH ×3 (08:32→20:29)
[2023-11-10] MEDS: amLODIPine BESYLATE 5 MG TABLET PO SCH (08:40)
[2023-11-10] MEDS: METOPROLOL SUCCINATE 50 MG TAB.SR.24H (TOPROL XL) PO SCH (08:40)
[2023-11-10] MEDS: ALPRAZolam 0.25 MG TABLET PO PRN (12:23)
[2023-11-10] MEDS: MONTELUKAST 10 MG TABLET PO SCH (18:47)
[2023-11-10] MEDS: ATORVASTATIN 20 MG TABLET PO SCH (20:29)
[2023-11-10] MEDS: LORazepam 2 MG/ML VIAL IVP PRN (21:10)
[2023-11-11] VITALS (29 sets, daily range): BP systolic 106–156; PULSE 79–134; RESP 18–45; TEMP 97.6–98.5; O2SAT 83–98
[2023-11-11] MEDS: IPRATROPIUM/ALBUTEROL SULFATE 3 ML AMPUL.NEB (DUONEB) INH SCH ×7 (00:09→23:10)
[2023-11-11] MEDS: methylPREDNISolone SOD SUCC/PF 62.5 MG/ML VIAL IVP SCH ×4 (00:20→17:50)
[2023-11-11] MEDS: ALPRAZolam 0.25 MG TABLET PO PRN ×3 (01:49→22:47)
[2023-11-11 05:29] LABS: HEMATOCRIT 37.2 % (36-48); HEMOGLOBIN 12.1 g/dL (12.0-16.0); LYMPHOCYTES # (AUTO) 0.3 K/uL (1.0-5.5); LYMPHOCYTES % (AUTO) 2.7 % (20.5-51.5); MEAN CORPUSCULAR HEMOGLOBIN 31 pg (27-31); MEAN CORPUSCULAR HGB CONC 33 % (32-36); MEAN CORPUSCULAR VOLUME 96 fL (79.0-98.0); MONOCYTES # (AUTO) 0.6 K/uL (0.0-1.0); MONOCYTES % (AUTO) 5.7 % (1.7-9.3); NEUTROPHILS # (AUTO) 9.6 K/uL (1.8-7.7); NEUTROPHILS % (AUTO) 91.6 % (40.0-70.0); PLATELET COUNT (AUTO) 153 K/uL (130-430); RED BLOOD CELL COUNT(AUTO) 3.89 MIL/uL (4.2-6.2); RED CELL DISTRIBUTION WIDTH 13.9 % (9.0-15.0); WHITE BLOOD COUNT (AUTO) 10.5 K/uL (4.8-10.8)
[2023-11-11 05:45] LABS: ALANINE AMINOTRANSFERASE 72 U/L (12-78); ANION GAP 8 (5-15); CALCIUM 9.2 mg/dL (8.4-11.0); CARBON DIOXIDE 26 mmol/L (23-29); CHLORIDE 106 mmol/L (98-107); CREATININE 0.96 mg/dL (0.55-1.30); GLUCOSE 122 mg/dL (74-106); POTASSIUM 4.3 mmol/L (3.5-5.1); SODIUM SERUM 140 mmol/L (136-145); TOTAL PROTEIN, SERUM 6.2 g/dL (6.4-8.3); UREA NITROGEN, BLOOD 38 mg/dL (8-21)
[2023-11-11 07:49] LABS: ASPARTATE AMINOTRANSFERASE 77 U/L (10-37)
[2023-11-11 07:50] LABS: TOTAL BILIRUBIN 0.4 mg/dL (0.0-1.0)
[2023-11-11] MEDS: POLYETHYLENE GLYCOL 3350, 17 GM/ POWD.PACK PO SCH (09:00)
[2023-11-11] MEDS: DOCUSATE SODIUM 250 MG CAPSULE PO SCH ×2 (09:00→21:04)
[2023-11-11] MEDS: LACTOBACILLUS RHAMNOSUS GG 1 CAP CAPSULE PO SCH ×4 (09:00→21:04)
[2023-11-11] MEDS: METOPROLOL SUCCINATE 50 MG TAB.SR.24H (TOPROL XL) PO SCH (09:55)
[2023-11-11] MEDS: amLODIPine BESYLATE 5 MG TABLET PO SCH (09:56)
[2023-11-11] MEDS: ENOXAPARIN SODIUM 30 MG/0.3 ML SYRINGE SUBCUT SCH (09:56)
[2023-11-11] MEDS: MORPHINE 4 MG INJ. 4 MG/ML VIAL IVP PRN (13:08)
[2023-11-11] MEDS: ONDANSETRON HCL 4 MG/2 ML VIAL IVP PRN (15:20)
[2023-11-11] MEDS: MONTELUKAST 10 MG TABLET PO SCH (17:50)
[2023-11-11] MEDS: ATORVASTATIN 20 MG TABLET PO SCH (21:04)
[2023-11-12] VITALS (31 sets, daily range): BP systolic 99–151; PULSE 85–102; RESP 19–32; TEMP 97–98.4; O2SAT 90–98
[2023-11-12] MEDS: methylPREDNISolone SOD SUCC/PF 62.5 MG/ML VIAL IVP SCH ×4 (00:18→23:50)
[2023-11-12] MEDS: IPRATROPIUM/ALBUTEROL SULFATE 3 ML AMPUL.NEB (DUONEB) INH SCH ×6 (03:57→23:21)
[2023-11-12 05:07] LABS: BASOPHILS % (AUTO) 0.1 % (0.0-2.0); HEMATOCRIT 36.9 % (36-48); HEMOGLOBIN 11.8 g/dL (12.0-16.0); LYMPHOCYTES # (AUTO) 0.3 K/uL (1.0-5.5); MEAN CORPUSCULAR HEMOGLOBIN 31 pg (27-31); MEAN CORPUSCULAR HGB CONC 32 % (32-36); MEAN CORPUSCULAR VOLUME 96 fL (79.0-98.0); MONOCYTES # (AUTO) 0.6 K/uL (0.0-1.0); MONOCYTES % (AUTO) 5.8 % (1.7-9.3); NEUTROPHILS # (AUTO) 8.7 K/uL (1.8-7.7); NEUTROPHILS % (AUTO) 91.1 % (40.0-70.0); PLATELET COUNT (AUTO) 168 K/uL (130-430); RED BLOOD CELL COUNT(AUTO) 3.85 MIL/uL (4.2-6.2); RED CELL DISTRIBUTION WIDTH 13.7 % (9.0-15.0); WHITE BLOOD COUNT (AUTO) 9.5 K/uL (4.8-10.8)
[2023-11-12 05:24] LABS: ANION GAP 9 (5-15); CALCIUM 8.6 mg/dL (8.4-11.0); CARBON DIOXIDE 27 mmol/L (23-29); CHLORIDE 106 mmol/L (98-107); CREATININE 0.88 mg/dL (0.55-1.30); GLUCOSE 189 mg/dL (74-106); POTASSIUM 4.2 mmol/L (3.5-5.1); SODIUM SERUM 142 mmol/L (136-145); UREA NITROGEN, BLOOD 35 mg/dL (8-21)
[2023-11-12] MEDS ORDERED: MORPHINE 4 MG INJ. 4 MG/ML VIAL IVP ONE (08:15)
[2023-11-12] MEDS: METOPROLOL SUCCINATE 50 MG TAB.SR.24H (TOPROL XL) PO SCH (08:59)
[2023-11-12] MEDS: POLYETHYLENE GLYCOL 3350, 17 GM/ POWD.PACK PO SCH (08:59)
[2023-11-12] MEDS: amLODIPine BESYLATE 5 MG TABLET PO SCH (08:59)
[2023-11-12] MEDS: DOCUSATE SODIUM 250 MG CAPSULE PO SCH ×2 (08:59→20:34)
[2023-11-12] MEDS: LACTOBACILLUS RHAMNOSUS GG 1 CAP CAPSULE PO SCH ×4 (08:59→20:34)
[2023-11-12] MEDS: ENOXAPARIN SODIUM 30 MG/0.3 ML SYRINGE SUBCUT SCH (09:00)
[2023-11-12] MEDS: ALPRAZolam 0.25 MG TABLET PO PRN (13:46)
[2023-11-12] MEDS: HYDROcodone/ACETAMIN 5-325 MG TAB (NORCO/ VICODIN) PO PRN (16:18)
[2023-11-12] MEDS: MONTELUKAST 10 MG TABLET PO SCH (18:23)
[2023-11-12] MEDS ORDERED: ALPRAZolam 0.25 MG TABLET PO ONE (18:30)
[2023-11-12] MEDS: VORICONAZOLE 200 MG TABLET PO SCH (20:34)
[2023-11-12] MEDS: ATORVASTATIN 20 MG TABLET PO SCH (20:34)
[2023-11-13] VITALS (29 sets, daily range): BP systolic 102–140; PULSE 81–99; RESP 18–36; TEMP 97.8–98.6; O2SAT 86–98
[2023-11-13] MEDS: IPRATROPIUM/ALBUTEROL SULFATE 3 ML AMPUL.NEB (DUONEB) INH SCH ×6 (03:15→23:26)
[2023-11-13 05:08] LABS: HEMATOCRIT 34.7 % (36-48); HEMOGLOBIN 11.6 g/dL (12.0-16.0); LYMPHOCYTES # (AUTO) 0.2 K/uL (1.0-5.5); LYMPHOCYTES % (AUTO) 2.4 % (20.5-51.5); MEAN CORPUSCULAR HEMOGLOBIN 32 pg (27-31); MEAN CORPUSCULAR HGB CONC 33 % (32-36); MEAN CORPUSCULAR VOLUME 96 fL (79.0-98.0); MONOCYTES # (AUTO) 0.4 K/uL (0.0-1.0); MONOCYTES % (AUTO) 5.3 % (1.7-9.3); NEUTROPHILS # (AUTO) 7.7 K/uL (1.8-7.7); NEUTROPHILS % (AUTO) 92.3 % (40.0-70.0); PLATELET COUNT (AUTO) 189 K/uL (130-430); RED BLOOD CELL COUNT(AUTO) 3.62 MIL/uL (4.2-6.2); RED CELL DISTRIBUTION WIDTH 13.6 % (9.0-15.0); WHITE BLOOD COUNT (AUTO) 8.4 K/uL (4.8-10.8)
[2023-11-13 05:33] LABS: ALANINE AMINOTRANSFERASE 59 U/L (12-78); ALBUMIN 2.6 g/dL (3.4-4.8); ANION GAP 7 (5-15); ASPARTATE AMINOTRANSFERASE 36 U/L (10-37); CALCIUM 8.7 mg/dL (8.4-11.0); CARBON DIOXIDE 29 mmol/L (23-29); CHLORIDE 107 mmol/L (98-107); CREATININE 0.85 mg/dL (0.55-1.30); GLUCOSE 184 mg/dL (74-106); POTASSIUM 4.2 mmol/L (3.5-5.1); SODIUM SERUM 143 mmol/L (136-145); TOTAL BILIRUBIN 0.3 mg/dL (0.0-1.0); TOTAL PROTEIN, SERUM 5.9 g/dL (6.4-8.3); UREA NITROGEN, BLOOD 32 mg/dL (8-21)
[2023-11-13] MEDS: methylPREDNISolone SOD SUCC/PF 62.5 MG/ML VIAL IVP SCH ×4 (05:39→23:31)
[2023-11-13] MEDS: LACTOBACILLUS RHAMNOSUS GG 1 CAP CAPSULE PO SCH ×3 (09:00→20:27)
[2023-11-13] MEDS: POLYETHYLENE GLYCOL 3350, 17 GM/ POWD.PACK PO SCH (09:00)
[2023-11-13] MEDS: DOCUSATE SODIUM 250 MG CAPSULE PO SCH ×2 (09:00→21:00)
[2023-11-13] MEDS: MORPHINE 4 MG INJ. 4 MG/ML VIAL IVP PRN (09:14)
[2023-11-13] MEDS: ENOXAPARIN SODIUM 30 MG/0.3 ML SYRINGE SUBCUT SCH (09:19)
[2023-11-13] MEDS: VORICONAZOLE 200 MG TABLET PO SCH ×2 (09:20→20:27)
[2023-11-13] MEDS ORDERED: BUMEX 1 MG/4 ML VIAL IVP ONE (12:00)
[2023-11-13] MEDS: amLODIPine BESYLATE 5 MG TABLET PO SCH (12:29)
[2023-11-13] MEDS: ALPRAZolam 0.25 MG TABLET PO PRN (12:30)
[2023-11-13] MEDS: METOPROLOL SUCCINATE 50 MG TAB.SR.24H (TOPROL XL) PO SCH (12:35)
[2023-11-13] MEDS: VANCOMYCIN HCL 750 MG in NS 250 ML IV SCH ×2 (15:06→15:08)
[2023-11-13] MEDS: LORazepam 2 MG/ML VIAL IVP PRN (17:06)
[2023-11-13] MEDS: MONTELUKAST 10 MG TABLET PO SCH (17:07)
[2023-11-13] MEDS: ATORVASTATIN 20 MG TABLET PO SCH (20:27)
[2023-11-13] MEDS: MILK OF MAGNESIA 30 ML UDC PO PRN (22:22)
[2023-11-14] VITALS (30 sets, daily range): BP systolic 101–129; PULSE 81–94; RESP 11–31; TEMP 97.5–98.7; O2SAT 85–98
[2023-11-14] MEDS: IPRATROPIUM/ALBUTEROL SULFATE 3 ML AMPUL.NEB (DUONEB) INH SCH ×6 (03:35→23:41)
[2023-11-14] MEDS: methylPREDNISolone SOD SUCC/PF 62.5 MG/ML VIAL IVP SCH ×4 (05:49→23:43)
[2023-11-14 05:54] LABS: BASOPHILS % (AUTO) 0.1 % (0.0-2.0); HEMATOCRIT 36.5 % (36-48); HEMOGLOBIN 12.2 g/dL (12.0-16.0); LYMPHOCYTES # (AUTO) 0.2 K/uL (1.0-5.5); LYMPHOCYTES % (AUTO) 1.6 % (20.5-51.5); MEAN CORPUSCULAR HEMOGLOBIN 32 pg (27-31); MEAN CORPUSCULAR HGB CONC 33 % (32-36); MEAN CORPUSCULAR VOLUME 96 fL (79.0-98.0); MONOCYTES # (AUTO) 0.3 K/uL (0.0-1.0); MONOCYTES % (AUTO) 3.4 % (1.7-9.3); NEUTROPHILS # (AUTO) 9.4 K/uL (1.8-7.7); NEUTROPHILS % (AUTO) 94.9 % (40.0-70.0); PLATELET COUNT (AUTO) 213 K/uL (130-430); RED BLOOD CELL COUNT(AUTO) 3.82 MIL/uL (4.2-6.2); RED CELL DISTRIBUTION WIDTH 13.7 % (9.0-15.0); WHITE BLOOD COUNT (AUTO) 9.9 K/uL (4.8-10.8)
[2023-11-14 06:38] LABS: ANION GAP 8 (5-15); CALCIUM 8.9 mg/dL (8.4-11.0); CARBON DIOXIDE 30 mmol/L (23-29); CHLORIDE 106 mmol/L (98-107); CREATININE 0.89 mg/dL (0.55-1.30); GLUCOSE 183 mg/dL (74-106); POTASSIUM 4.3 mmol/L (3.5-5.1); SODIUM SERUM 144 mmol/L (136-145); UREA NITROGEN, BLOOD 35 mg/dL (8-21)
[2023-11-14] MEDS: ENOXAPARIN SODIUM 30 MG/0.3 ML SYRINGE SUBCUT SCH (08:50)
[2023-11-14] MEDS: POLYETHYLENE GLYCOL 3350, 17 GM/ POWD.PACK PO SCH (08:50)
[2023-11-14] MEDS: LACTOBACILLUS RHAMNOSUS GG 1 CAP CAPSULE PO SCH ×2 (08:50→21:00)
[2023-11-14] MEDS: METOPROLOL SUCCINATE 50 MG TAB.SR.24H (TOPROL XL) PO SCH (08:52)
[2023-11-14] MEDS: DOCUSATE SODIUM 250 MG CAPSULE PO SCH ×2 (08:53→21:00)
[2023-11-14] MEDS: amLODIPine BESYLATE 5 MG TABLET PO SCH (08:57)
[2023-11-14] MEDS: BUMEX 1 MG/4 ML VIAL IVP SCH (09:00)
[2023-11-14] MEDS: VORICONAZOLE 200 MG TABLET PO SCH ×2 (09:00→21:19)
[2023-11-14] MEDS ORDERED: BUMEX 1 MG/4 ML VIAL IVP ONE (14:00)
[2023-11-14] MEDS: ALPRAZolam 0.25 MG TABLET PO PRN ×2 (15:24→22:15)
[2023-11-14] MEDS: MONTELUKAST 10 MG TABLET PO SCH (18:00)
[2023-11-14] MEDS: ATORVASTATIN 20 MG TABLET PO SCH (21:26)
[2023-11-15] VITALS (24 sets, daily range): BP systolic 81–131; PULSE 77–109; RESP 18–30; TEMP 97.8–98.7; O2SAT 88–96
[2023-11-15] MEDS: IPRATROPIUM/ALBUTEROL SULFATE 3 ML AMPUL.NEB (DUONEB) INH SCH ×6 (03:00→23:48)
[2023-11-15] MEDS: methylPREDNISolone SOD SUCC/PF 62.5 MG/ML VIAL IVP SCH ×3 (05:18→18:07)
[2023-11-15 06:58] LABS: ALANINE AMINOTRANSFERASE 46 U/L (12-78); ALBUMIN 2.8 g/dL (3.4-4.8); ANION GAP 6 (5-15); ASPARTATE AMINOTRANSFERASE 17 U/L (10-37); BASOPHILS % (AUTO) 0.1 % (0.0-2.0); CALCIUM 8.8 mg/dL (8.4-11.0); CARBON DIOXIDE 31 mmol/L (23-29); CHLORIDE 102 mmol/L (98-107); CREATININE 0.99 mg/dL (0.55-1.30); GLUCOSE 189 mg/dL (74-106); HEMATOCRIT 35.9 % (36-48); HEMOGLOBIN 12.1 g/dL (12.0-16.0); LYMPHOCYTES # (AUTO) 0.2 K/uL (1.0-5.5); LYMPHOCYTES % (AUTO) 1.8 % (20.5-51.5); MEAN CORPUSCULAR HEMOGLOBIN 32 pg (27-31); MEAN CORPUSCULAR HGB CONC 34 % (32-36); MEAN CORPUSCULAR VOLUME 95 fL (79.0-98.0); MONOCYTES # (AUTO) 0.3 K/uL (0.0-1.0); MONOCYTES % (AUTO) 3.2 % (1.7-9.3); NEUTROPHILS # (AUTO) 10.1 K/uL (1.8-7.7); NEUTROPHILS % (AUTO) 94.9 % (40.0-70.0); PLATELET COUNT (AUTO) 204 K/uL (130-430); POTASSIUM 3.9 mmol/L (3.5-5.1); RED BLOOD CELL COUNT(AUTO) 3.78 MIL/uL (4.2-6.2); RED CELL DISTRIBUTION WIDTH 13.8 % (9.0-15.0); SODIUM SERUM 139 mmol/L (136-145); TOTAL BILIRUBIN 0.5 mg/dL (0.0-1.0); UREA NITROGEN, BLOOD 41 mg/dL (8-21); WHITE BLOOD COUNT (AUTO) 10.6 K/uL (4.8-10.8)
[2023-11-15] MEDS ORDERED: BUMEX 1 MG/4 ML VIAL IVP ONE (08:30)
[2023-11-15] MEDS: POLYETHYLENE GLYCOL 3350, 17 GM/ POWD.PACK PO SCH (09:00)
[2023-11-15] MEDS: METOPROLOL SUCCINATE 50 MG TAB.SR.24H (TOPROL XL) PO SCH (09:00)
[2023-11-15] MEDS: DOCUSATE SODIUM 250 MG CAPSULE PO SCH ×2 (09:00→20:58)
[2023-11-15] MEDS: amLODIPine BESYLATE 5 MG TABLET PO SCH (09:00)
[2023-11-15 09:06] LABS: COCCIDIOIDES AB IGG 0.1 IV (<=0.9); COCCIDIOIDES AB IGM 0.1 IV (<=0.9)
[2023-11-15] MEDS: LACTOBACILLUS RHAMNOSUS GG 1 CAP CAPSULE PO SCH ×2 (10:32→20:58)
[2023-11-15] MEDS: ENOXAPARIN SODIUM 30 MG/0.3 ML SYRINGE SUBCUT SCH (10:32)
[2023-11-15] MEDS: BUMEX 1 MG/4 ML VIAL IVP SCH (12:31)
[2023-11-15] MEDS: VORICONAZOLE 200 MG TABLET PO SCH ×2 (12:43→20:58)
[2023-11-15 13:14] LABS: BASOPHILS % (AUTO) 0.3 % (0.0-2.0); HEMATOCRIT 38.9 % (36-48); HEMOGLOBIN 12.9 g/dL (12.0-16.0); LYMPHOCYTES # (AUTO) 0.2 K/uL (1.0-5.5); LYMPHOCYTES % (AUTO) 1.6 % (20.5-51.5); MEAN CORPUSCULAR HEMOGLOBIN 31 pg (27-31); MEAN CORPUSCULAR HGB CONC 33 % (32-36); MEAN CORPUSCULAR VOLUME 95 fL (79.0-98.0); MONOCYTES # (AUTO) 0.5 K/uL (0.0-1.0); MONOCYTES % (AUTO) 4.1 % (1.7-9.3); NEUTROPHILS # (AUTO) 11.7 K/uL (1.8-7.7); PLATELET COUNT (AUTO) 219 K/uL (130-430); RED BLOOD CELL COUNT(AUTO) 4.12 MIL/uL (4.2-6.2); RED CELL DISTRIBUTION WIDTH 13.7 % (9.0-15.0); WHITE BLOOD COUNT (AUTO) 12.4 K/uL (4.8-10.8)
[2023-11-15] MEDS: MONTELUKAST 10 MG TABLET PO SCH (18:07)
[2023-11-15] MEDS: ALPRAZolam 0.25 MG TABLET PO PRN (19:47)
[2023-11-15] MEDS: ATORVASTATIN 20 MG TABLET PO SCH (20:58)
[2023-11-16] VITALS (32 sets, daily range): BP systolic 53–133; PULSE 82–103; RESP 14–33; TEMP 97.7–98.8; O2SAT 85–95
[2023-11-16] MEDS: methylPREDNISolone SOD SUCC/PF 62.5 MG/ML VIAL IVP SCH ×4 (01:24→17:55)
[2023-11-16] MEDS: IPRATROPIUM/ALBUTEROL SULFATE 3 ML AMPUL.NEB (DUONEB) INH SCH ×6 (03:22→23:09)
[2023-11-16] MEDS: ALPRAZolam 0.25 MG TABLET PO PRN (04:00)
[2023-11-16 04:59] LABS: ALANINE AMINOTRANSFERASE 39 U/L (12-78); ALBUMIN 2.8 g/dL (3.4-4.8); ANION GAP 7 (5-15); ASPARTATE AMINOTRANSFERASE 16 U/L (10-37); CALCIUM 8.8 mg/dL (8.4-11.0); CARBON DIOXIDE 31 mmol/L (23-29); CHLORIDE 102 mmol/L (98-107); CREATININE 1.08 mg/dL (0.55-1.30); GLUCOSE 229 mg/dL (74-106); POTASSIUM 3.4 mmol/L (3.5-5.1); SODIUM SERUM 140 mmol/L (136-145); TOTAL BILIRUBIN 0.5 mg/dL (0.0-1.0); TOTAL PROTEIN, SERUM 5.9 g/dL (6.4-8.3); UREA NITROGEN, BLOOD 44 mg/dL (8-21)
[2023-11-16 05:22] LABS: BASOPHILS % (AUTO) 0.1 % (0.0-2.0); HEMATOCRIT 36.6 % (36-48); LYMPHOCYTES # (AUTO) 0.2 K/uL (1.0-5.5); LYMPHOCYTES % (AUTO) 1.2 % (20.5-51.5); MEAN CORPUSCULAR HEMOGLOBIN 31 pg (27-31); MEAN CORPUSCULAR HGB CONC 33 % (32-36); MEAN CORPUSCULAR VOLUME 95 fL (79.0-98.0); MONOCYTES # (AUTO) 0.4 K/uL (0.0-1.0); NEUTROPHILS # (AUTO) 12.3 K/uL (1.8-7.7); NEUTROPHILS % (AUTO) 95.7 % (40.0-70.0); PLATELET COUNT (AUTO) 192 K/uL (130-430); RED BLOOD CELL COUNT(AUTO) 3.86 MIL/uL (4.2-6.2); RED CELL DISTRIBUTION WIDTH 13.6 % (9.0-15.0); WHITE BLOOD COUNT (AUTO) 12.8 K/uL (4.8-10.8)
[2023-11-16] MEDS: ENOXAPARIN SODIUM 30 MG/0.3 ML SYRINGE SUBCUT SCH (08:54)
[2023-11-16] MEDS: METOPROLOL SUCCINATE 50 MG TAB.SR.24H (TOPROL XL) PO SCH (08:54)
[2023-11-16] MEDS: BUMEX 1 MG/4 ML VIAL IVP SCH (08:55)
[2023-11-16] MEDS: LACTOBACILLUS RHAMNOSUS GG 1 CAP CAPSULE PO SCH ×2 (09:00→20:16)
[2023-11-16] MEDS: DOCUSATE SODIUM 250 MG CAPSULE PO SCH ×2 (09:00→20:16)
[2023-11-16] MEDS: POLYETHYLENE GLYCOL 3350, 17 GM/ POWD.PACK PO SCH (09:00)
[2023-11-16] MEDS: amLODIPine BESYLATE 5 MG TABLET PO SCH (09:24)
[2023-11-16] MEDS: VORICONAZOLE 200 MG TABLET PO SCH ×2 (09:25→20:16)
[2023-11-16] MEDS: MONTELUKAST 10 MG TABLET PO SCH (17:55)
[2023-11-16] MEDS: CLARITHROMYCIN 500 MG TABLET PO SCH (20:16)
[2023-11-16] MEDS: ATORVASTATIN 20 MG TABLET PO SCH (20:16)
[2023-11-16] MEDS: HYDROcodone/ACETAMIN 5-325 MG TAB (NORCO/ VICODIN) PO PRN (20:17)
[2023-11-17] VITALS (29 sets, daily range): BP systolic 89–122; PULSE 74–160; RESP 14–37; TEMP 97.5–98.6; O2SAT 88–99
[2023-11-17] MEDS: methylPREDNISolone SOD SUCC/PF 62.5 MG/ML VIAL IVP SCH ×5 (00:24→23:14)
[2023-11-17] MEDS: ALPRAZolam 0.25 MG TABLET PO PRN ×3 (00:24→20:08)
[2023-11-17] MEDS: IPRATROPIUM/ALBUTEROL SULFATE 3 ML AMPUL.NEB (DUONEB) INH SCH ×6 (03:00→23:25)
[2023-11-17 06:27] LABS: BASOPHILS % (AUTO) 0.3 % (0.0-2.0); HEMATOCRIT 37.5 % (36-48); HEMOGLOBIN 12.6 g/dL (12.0-16.0); LYMPHOCYTES # (AUTO) 0.3 K/uL (1.0-5.5); LYMPHOCYTES % (AUTO) 1.9 % (20.5-51.5); MEAN CORPUSCULAR HEMOGLOBIN 32 pg (27-31); MEAN CORPUSCULAR HGB CONC 34 % (32-36); MEAN CORPUSCULAR VOLUME 95 fL (79.0-98.0); MONOCYTES # (AUTO) 0.3 K/uL (0.0-1.0); MONOCYTES % (AUTO) 2.2 % (1.7-9.3); NEUTROPHILS # (AUTO) 14.6 K/uL (1.8-7.7); NEUTROPHILS % (AUTO) 95.6 % (40.0-70.0); PLATELET COUNT (AUTO) 206 K/uL (130-430); RED BLOOD CELL COUNT(AUTO) 3.95 MIL/uL (4.2-6.2); WHITE BLOOD COUNT (AUTO) 15.3 K/uL (4.8-10.8)
[2023-11-17 06:47] LABS: ALANINE AMINOTRANSFERASE 38 U/L (12-78); ANION GAP 7 (5-15); ASPARTATE AMINOTRANSFERASE 15 U/L (10-37); CALCIUM 8.7 mg/dL (8.4-11.0); CARBON DIOXIDE 33 mmol/L (23-29); CHLORIDE 101 mmol/L (98-107); CREATININE 1.16 mg/dL (0.55-1.30); GLUCOSE 196 mg/dL (74-106); POTASSIUM 3.7 mmol/L (3.5-5.1); SODIUM SERUM 141 mmol/L (136-145); TOTAL BILIRUBIN 0.5 mg/dL (0.0-1.0); TOTAL PROTEIN, SERUM 6.1 g/dL (6.4-8.3); UREA NITROGEN, BLOOD 50 mg/dL (8-21)
[2023-11-17] MEDS: DOCUSATE SODIUM 250 MG CAPSULE PO SCH ×2 (09:44→21:00)
[2023-11-17] MEDS: VORICONAZOLE 200 MG TABLET PO SCH ×2 (09:44→20:08)
[2023-11-17] MEDS: BUMEX 1 MG/4 ML VIAL IVP SCH (09:44)
[2023-11-17] MEDS: POLYETHYLENE GLYCOL 3350, 17 GM/ POWD.PACK PO SCH (09:45)
[2023-11-17] MEDS: METOPROLOL SUCCINATE 50 MG TAB.SR.24H (TOPROL XL) PO SCH (09:45)
[2023-11-17] MEDS: amLODIPine BESYLATE 5 MG TABLET PO SCH (09:46)
[2023-11-17] MEDS: CLARITHROMYCIN 500 MG TABLET PO SCH (09:46)
[2023-11-17] MEDS: LACTOBACILLUS RHAMNOSUS GG 1 CAP CAPSULE PO SCH ×2 (09:46→20:08)
[2023-11-17] MEDS: ENOXAPARIN SODIUM 30 MG/0.3 ML SYRINGE SUBCUT SCH (09:47)
[2023-11-17] MEDS: MORPHINE 4 MG INJ. 4 MG/ML VIAL IVP PRN (10:41)
[2023-11-17] MEDS: ONDANSETRON HCL 4 MG/2 ML VIAL IVP PRN (11:17)
[2023-11-17] MEDS: LORazepam 2 MG/ML VIAL IVP PRN (12:08)
[2023-11-17] MEDS ORDERED: MEROPENEM 1 GM IVPB PREMIX 50 ML IV ONE (13:00)
[2023-11-17] MEDS: MEROPENEM 1 GM IVPB PREMIX 50 ML IV SCH (13:20)
[2023-11-17] MEDS ORDERED: DIGOXIN 0.5 MG/2 ML AMP IVP ONE (15:30)
[2023-11-17] MEDS ORDERED: AMIODARONE HCL 150 MG in D5W 100 ML IV ONE (17:00)
[2023-11-17] MEDS: MONTELUKAST 10 MG TABLET PO SCH (17:42)
[2023-11-17] MEDS: AMIODARONE HCL 450 MG in D5W 241 ML IV SCH (17:59)
[2023-11-17] MEDS: ATORVASTATIN 20 MG TABLET PO SCH (20:08)
[2023-11-17] MEDS: DIGOXIN 0.5 MG/2 ML AMP IVP ONE ×2 (22:30→23:08)
[2023-11-18] VITALS (25 sets, daily range): BP systolic 94–130; PULSE 77–110; RESP 15–30; TEMP 98.1–98.6; O2SAT 89–99
[2023-11-18] MEDS: AMIODARONE HCL 450 MG in D5W 241 ML IV SCH ×2 (02:27→07:45)
[2023-11-18] MEDS: IPRATROPIUM/ALBUTEROL SULFATE 3 ML AMPUL.NEB (DUONEB) INH SCH ×5 (03:00→20:14)
[2023-11-18] MEDS ORDERED: DIGOXIN 0.5 MG/2 ML AMP IVP ONE (04:00)
[2023-11-18 05:48] LABS: BASOPHILS % (AUTO) 0.2 % (0.0-2.0); HEMATOCRIT 38.1 % (36-48); HEMOGLOBIN 12.7 g/dL (12.0-16.0); LYMPHOCYTES # (AUTO) 0.3 K/uL (1.0-5.5); LYMPHOCYTES % (AUTO) 2.1 % (20.5-51.5); MEAN CORPUSCULAR HEMOGLOBIN 32 pg (27-31); MEAN CORPUSCULAR HGB CONC 33 % (32-36); MEAN CORPUSCULAR VOLUME 95 fL (79.0-98.0); MONOCYTES # (AUTO) 0.2 K/uL (0.0-1.0); MONOCYTES % (AUTO) 1.2 % (1.7-9.3); NEUTROPHILS # (AUTO) 15.7 K/uL (1.8-7.7); NEUTROPHILS % (AUTO) 96.5 % (40.0-70.0); PLATELET COUNT (AUTO) 223 K/uL (130-430); RED BLOOD CELL COUNT(AUTO) 4.01 MIL/uL (4.2-6.2); RED CELL DISTRIBUTION WIDTH 13.5 % (9.0-15.0); WHITE BLOOD COUNT (AUTO) 16.2 K/uL (4.8-10.8)
[2023-11-18 05:56] LABS: ANION GAP 7 (5-15); CALCIUM 8.1 mg/dL (8.4-11.0); CARBON DIOXIDE 34 mmol/L (23-29); CHLORIDE 99 mmol/L (98-107); CREATININE 1.65 mg/dL (0.55-1.30); GLUCOSE 210 mg/dL (74-106); POTASSIUM 3.9 mmol/L (3.5-5.1); SODIUM SERUM 140 mmol/L (136-145); UREA NITROGEN, BLOOD 67 mg/dL (8-21)
[2023-11-18] MEDS: methylPREDNISolone SOD SUCC/PF 62.5 MG/ML VIAL IVP SCH ×3 (06:29→18:57)
[2023-11-18] MEDS: POLYETHYLENE GLYCOL 3350, 17 GM/ POWD.PACK PO SCH (08:38)
[2023-11-18] MEDS: MEROPENEM 1 GM IVPB PREMIX 50 ML IV SCH (08:38)
[2023-11-18] MEDS: ENOXAPARIN SODIUM 30 MG/0.3 ML SYRINGE SUBCUT SCH (08:38)
[2023-11-18] MEDS: amLODIPine BESYLATE 5 MG TABLET PO SCH (08:40)
[2023-11-18] MEDS: LACTOBACILLUS RHAMNOSUS GG 1 CAP CAPSULE PO SCH (08:41)
[2023-11-18] MEDS: METOPROLOL SUCCINATE 50 MG TAB.SR.24H (TOPROL XL) PO SCH (08:42)
[2023-11-18] MEDS: DOCUSATE SODIUM 250 MG CAPSULE PO SCH (08:42)
[2023-11-18] MEDS: VORICONAZOLE 200 MG TABLET PO SCH (08:51)
[2023-11-18] MEDS: ALPRAZolam 0.25 MG TABLET PO PRN ×2 (08:56→19:31)
[2023-11-18] MEDS ORDERED: ALBUMIN HUMAN 25% 50 ML IV SCH (15:00)
[2023-11-18] MEDS ORDERED: AMIODARONE HCL 200 MG TABLET PO ONE (15:30)
[2023-11-18] MEDS: MONTELUKAST 10 MG TABLET PO SCH (18:57)
[2023-11-18] MEDS: MORPHINE 4 MG INJ. 4 MG/ML VIAL IVP PRN (19:30)
[2023-11-18] MEDS ORDERED: AMIODARONE HCL 200 MG TABLET PO SCH (21:00)
[2023-11-22 06:06] LABS: ASPERGILLUS FLAVUS Negative (Neg:<1:1); ASPERGILLUS FUMIGATUS Negative (Neg:<1:1)
[2023-11-24 13:43] LABS: IMMUNOGLOBULIN E,TOTAL 7
== END 2023-11-18 20:45 | DRG 177 ==
LOC: SED 10:10 → SMU 13:24 → SIC 16:35
PROVIDERS: ADMIT Family Medicine; ATTEND Family Medicine
PROC: 5A0955A Assistance with Respiratory Ventilation, Greater than 96 Consecutive Hours, High Flow/Velocity Cannula (ICD-10-PCS; principal; 2023-11-07)
PROC: 05HY33Z Insertion of Infusion Device into Upper Vein, Percutaneous Approach (ICD-10-PCS; 2023-11-12)
PROC: 5A09357 Assistance with Respiratory Ventilation, Less than 24 Consecutive Hours, Continuous Positive Airway Pressure (ICD-10-PCS; 2023-11-17)
DX: J15.69 Pneumonia due to other Gram-negative bacteria (principal); J96.21 Acute and chronic respiratory failure with hypoxia; J44.1 Chronic obstructive pulmonary disease with (acute) exacerbation; N17.9 Acute kidney failure, unspecified; I50.9 Heart failure, unspecified; Z20.822 Contact with and (suspected) exposure to COVID-19; K57.30 Diverticulosis of large intestine without perforation or abscess without bleeding; Z66 Do not resuscitate; E86.0 Dehydration; I11.0 Hypertensive heart disease with heart failure; I48.91 Unspecified atrial fibrillation; K59.00 Constipation, unspecified; E78.5 Hyperlipidemia, unspecified; Z87.891 Personal history of nicotine dependence; Z90.710 Acquired absence of both cervix and uterus; Z88.1 Allergy status to other antibiotic agents
CPT/HCPCS: 36415; 36600; 71045; 76376; 80048; 80053; 80076; 81001; 81003; 82785; 82803; 82962; 83605; 83690; 84484; 85025; 85610-TC; 85730-TC; 86606; 86635; 86738; 86886; 86900; 86901; 86920; 87040; 87081; 87086; 87305; 87449; 93005; 94640; 94668; 94760; 96365; 96375; 97110-GP; 97116-GP; 97530-GP; 99285; J0282; J0456; J1030; J1160; J1650; J1956; J2060; J2185; J2270; J2405; J2930; J3490; J7050; J7060; P9046